=== PATIENT | female | born 1990 | race Caucasian/White ===

== ENCOUNTER → 2019-03-23 | Outpatient (CLI) | payer OTHER ==
[2019-03-23 11:48] LABS: Glucose 3 Hour, Gest 161 mg/dL
== END | disposition home or self-care (01) ==
LOC: LABWHC1 07:39
PROVIDERS: ATTEND Obstetrics & Gynecology
DX: O99.810 Abnormal glucose complicating pregnancy (principal)
CPT/HCPCS: 36415; 82951; 82952

== ENCOUNTER 2019-05-08 15:48 | Outpatient (CLI) | payer OTHER ==
[2019-05-08 16:00] LABS: Glucose,Whole Blood 131 mg/dL (75-99)
[2019-05-08 16:22] LABS: Appearance,Urine Cloudy (Clear); Bacteria,Urine Moderate /hpf; Bilirubin,Urine Negative (Negative); Blood,Urine Negative (Negative); Color,Urine Light Yellow; Glucose,Urine (UA) Negative (Negative); Ketones,Urine 1+ (Negative); Leukocyte Esterase,Urine Large (Negative); Mucus,Urine Rare /hpf; Nitrite,Urine Negative (Negative); PH, Urine 6.5 (5.0-8.0); Protein,Urine Negative (Negative); RBC,Urine 5 /hpf (0-5); Specific Gravity,Urine 1.007 (1.001-1.035); Squamous Epithelial Cell,Urine 9 /hpf (0-4); Urobilinogen,Urine <2.0 mg/dL (<2.0); WBC,Urine 13 /hpf (0-5)
[2019-05-08] MEDS ORDERED: LACTATED RINGERS 500 ML IV SCH (16:45)
[2019-05-08 16:48] VITALS: BP 128/75; PULSE 117; RESP 14; TEMP 98.1
[2019-05-08 17:06] LABS: ALT <6 U/L (9-52); AST 17 U/L (14-36); African American GFR (CKD) >90 (>60 ml/min/1.73 sqM); Albumin 3.5 g/dL (3.5-5.0); Alkaline Phosphatase 84 U/L (38-126); Anion Gap 6 mmol/L; Blood Urea Nitrogen 4 mg/dL (7-17); Calcium 9.2 mg/dL (8.4-10.2); Carbon Dioxide 23 mmol/L (22-30); Chloride 108 mmol/L (98-107); Glucose 99 mg/dL (74-99); Potassium 3.7 mmol/L (3.5-5.1); Sodium 137 mmol/L (137-145); Total Bilirubin 0.3 mg/dL (0.2-1.3); Total Protein 6.6 g/dL (6.3-8.2)
[2019-05-08 17:08] LABS: Basophils % (A) 0 %; Eosinophils # (A) 0.1 k/uL (0-0.7); Eosinophils % (A) 1 %; HCT 29.7 % (34.0-46.0); HGB 10.1 gm/dL (11.4-16.0); Lymphocytes # (A) 1.4 k/uL (1.0-4.8); Lymphocytes % (A) 14 %; MCH 27.3 pg (25.0-35.0); MCHC 33.8 g/dL (31.0-37.0); Mean Platelet Volume 8.5; Monocytes # (A) 0.5 k/uL (0-1.0); Monocytes % (A) 5 %; Neutrophils # (A) 7.9 k/uL (1.3-7.7); Neutrophils % (A) 79 %; Platelet Count 243 k/uL (150-450); Poikilocytosis Slight; RBC 3.68 m/uL (3.80-5.40); RDW 14.4 % (11.5-15.5)
[2019-05-08 17:14] LABS: MCV 80.8 fL (80.0-100.0)
--- NOTE | 2019-05-09 06:37 | P.MSEPDOC ---
Presenting Problems - Arrival Data Date of Arrival on Unit: 05/08/19 Time of Arrival on Unit: 15:48 Mode of Transport: Ambulatory - Complaint OB-Reason for Admission/Chief Complaint: Pain Medical History - Information : 5 Para: 3 Term: 3 : 0 Abortions: Spontaneous or Elective: 1 Number of Living Children: 3 - Gestational Age Gestational Age by AMARJIT (wks/days): 33 Weeks and 5 Days - History Complications: GDM Review of Systems - Review of Systems Constitutional: No problems Breast: No problems ENT: No problems Cardiovascular: No problems Respiratory: No problems Gastrointestinal: No problems Genitourinary: No problems Musculoskeletal: No problems Neurological: No problems Skin: No problems Vital Signs - Temperature Temperature: 98.1 F Temperature Source: Oral - Pulse Right Brachial Pulse Rate: 117 Pulse Assessment Method: Automatic Cuff - Respirations Respiratory Rate: 14 Oxygen Delivery Method: Room Air - Blood Pressure Right Arm Blood Pressure: 128/75 Blood Pressure Mean: 92 Blood Pressure Source: Automatic Cuff Medical Screen Scoring (Pre) - Cervical Exam Dilation: 0 cm = 0 Membranes: Intact - Uterine Contractions Frequency: < 36 weeks = 6 Duration: N/A Intensity: N/A - Maternal Vital Signs Maternal Temperature: N/A Maternal Blood Pressure: N/A Signs of Preeclampsia: N/A Maternal Respirations: N/A - Maternal Trauma Maternal Trauma: N/A - Assessment - Baby A Baseline FHR: 145 Heart Rate - NICHD Category: Category I (Normal) = 0 NST: Reactive Position: N/A Station: N/A - Total Score - Baby A Total Score - Baby A: 6 - Total Score - Baby B Total Score - Baby B: 6 - Total Score - Baby C Total Score - Baby C: 6 - Level of Risk - Baby A Level of Risk - Baby A: Medium (6-9) - Level of Risk - Baby B Level of Risk - Baby B: Medium (6-9) - Level of Risk - Baby C Level of Risk - Baby C: Medium (6-9) Physician Notification (Pre) - Physician Notified Physician Notified Date: 05/08/19 Physician Notified Time: 16:30 Physician/Practitioner Notifed:: Dr. Yañez Spoke With: Dr. Yañez New Order Received: Yes Medical Screen Scoring (Post) - Uterine Contractions Frequency: > 5 minutes apart = 1 Duration: N/A Intensity: N/A - Maternal Vital Signs Maternal Temperature: N/A Signs of Preeclampsia: N/A Maternal Respirations: N/A - Pain Assessment Pain Location and Character: Back Pain Scale Used: Numeric (1 - 10) Pain Intensity: 2 Pain Management Goal: 1 Pain Description: *Acute Pain Radiation Location: na Pain Frequency: Intermittent Pain Duration: 30 Pain Duration Units: Minutes Pain Behavior: Vocalization Pain Aggravating Factors: Activity - Maternal Trauma Maternal Trauma: N/A - Assessment - Baby A Heart Rate: 145 Heart Rate - NICHD Category: Category I (Normal) = 0 NST: Reactive Position: N/A Station: N/A - Total Score Total Score - Baby A: 1 Total Score - Baby B: 1 Total Score - Baby C: 1 - Post Treatment Level of Risk Post Treatment Level of Risk - Baby A: Low (0-5) Physician Notification (Post) - Physician Notified Physician Notified Date: 05/08/19 Physician Notified Time: 18:00 Physician/Practitioner Notified:: Dr. Yañez Spoke With: Dr. Yañez New Order Received: Yes - Notification Comment Comment: d/c home Disposition - Disposition OB Disposition: Discharge to home Discharge Date: 05/08/19 Discharge Time: 18:00 I agree with the RN Medical Screening Exam: Yes Risk & Benefit of care provided described in d/c instruction: Yes Diagnosis: FALSE LABOR BEFORE 37 COMPLETED WEEKS OF GEST, THIRD TRI
== END 2019-05-08 18:20 | disposition home or self-care (01) ==
LOC: FBPOP 15:48
PROVIDERS: ATTEND Obstetrics & Gynecology
DX: O47.03 False labor before 37 completed weeks of gestation, third trimester (principal); Z3A.33 33 weeks gestation of pregnancy
CPT/HCPCS: 96360; 82731; 80053; 85025; 81001; 87086; G0463; 99214

== ENCOUNTER 2019-06-17 05:28 | Inpatient (IN) | payer OTHER ==
[2019-06-17 05:49] LABS: Glucose,Whole Blood 100 mg/dL (75-99)
[2019-06-17] MEDS ORDERED: METHYLERGONOVINE 0.2 MG/ML 1 ML AMP IM PRN (05:49)
[2019-06-17] MEDS ORDERED: TERBUTALINE 1 MG/ML VIAL SQ PRN (05:49)
[2019-06-17] MEDS ORDERED: OXYTOCIN 10 UNIT/ML 1 ML VIAL IM PRN (05:49)
[2019-06-17] MEDS ORDERED: LIDOCAINE 0.5% (PF) 5 MG/ML (50 ML SDV) SQ PRN (05:49)
[2019-06-17] MEDS ORDERED: CARBOPROST TROMETHAMINE 250 MCG/ML 1 ML AMP IM PRN (05:49)
[2019-06-17 05:57] LABS: Basophils % (A) 1 %; Eosinophils # (A) 0.1 k/uL (0-0.7); Eosinophils % (A) 1 %; HCT 30.4 % (34.0-46.0); Hypochromasia Slight; Lymphocytes % (A) 22 %; MCH 25.8 pg (25.0-35.0); MCV 78.1 fL (80.0-100.0); Mean Platelet Volume 8.2; Monocytes # (A) 0.5 k/uL (0-1.0); Monocytes % (A) 5 %; Neutrophils % (A) 67 %; Platelet Count 307 k/uL (150-450); Poikilocytosis Slight; RBC 3.88 m/uL (3.80-5.40); RDW 14.4 % (11.5-15.5); WBC 8.9 k/uL (3.8-10.6)
[2019-06-17 05:59] VITALS: BMI 31.8
[2019-06-17] MEDS ORDERED: OXYTOCIN 30 UNITS/500 ML NS 30 UNIT in SALINE 1 500ML.BAG IV SCH (06:00)
[2019-06-17] MEDS: LACTATED RINGERS 1,000 ML IV SCH ×2 (06:05→11:31)
[2019-06-17 08:01] LABS: Glucose,Whole Blood 95 mg/dL (75-99)
[2019-06-17 10:21] LABS: Glucose,Whole Blood 96 mg/dL (75-99)
[2019-06-17] MEDS ORDERED: BUTORPHANOL 1 MG/ML 1 ML VIAL IV PRN (10:39)
[2019-06-17 11:59] LABS: Glucose,Whole Blood 96 mg/dL (75-99)
--- NOTE | 2019-06-17 12:51 | P.HPOB ---
History of Present Illness H&P Date: 06/17/19 Chief Complaint: induction of labor. GDMA2 29 year old at 39 weeks 3 days presents for induction of labor. HEr cervix is 2/70/-2 and she is natalia irregularly. heart tones 130 with moderate variability and reactive. She is gestational diabetic on insulin and BS this morning was 100. Review of Systems All systems: negative Constitutional: Denies chills, Denies fever Eyes: denies blurred vision, denies pain Ears, nose, mouth and throat: Denies headache, Denies sore throat Cardiovascular: Denies chest pain, Denies shortness of breath Respiratory: Denies cough Gastrointestinal: Denies abdominal pain, Denies diarrhea, Denies nausea, Denies vomiting Genitourinary: Denies dysuria, Denies hematuria Musculoskeletal: Denies myalgias Integumentary: Denies pruritus, Denies rash Neurological: Denies numbness, Denies weakness Psychiatric: Denies anxiety, Denies depression Endocrine: Denies fatigue, Denies weight change Past Medical History Past Medical History: Thyroid Disorder Additional Past Medical History / Comment(s): Obstetric history: And has had 3 previous vaginal deliveries and 1 spontaneous . This is her fifth . She's had care with me since 9 weeks gestation. Blood type is O+, antibodies negative, rubella immune, RPR nonreactive, hepatitis B-, HIV nonreactive. She failed early 1 hour test and was put on a insulin for gestational diabetes. NSTs had been reactive and growth ultrasounds normal. GBS negative. History of Any Multi-Drug Resistant Organisms: None Reported Past Surgical History: Appendectomy Additional Past Surgical History / Comment(s): 11-24-14 lap appy Past Anesthesia/Blood Transfusion Reactions: No Reported Reaction Past Psychological History: Anxiety, Depression Additional Psychological History / Comment(s): starting medication post Smoking Status: Never smoker Past Alcohol Use History: None Reported Past Drug Use History: None Reported - Past Family History Mother Family Medical History: Hypertension, Thyroid Disorder Sister(s) Family Medical History: Syncope Father Family Medical History: COPD Additional Family Medical History / Comment(s): takes B-12 injections, has a problem absorbing B-12 Brother(s) Additional Family Medical History / Comment(s): takes B-12 injections, has a problem absorbing B-12 Medications and Allergies Home Medications Medication Instructions Recorded Confirmed Type INSULIN LISPRO (humaLOG) [humaLOG] 0 units SQ DIRECTED 05/08/19 06/17/19 History Insulin NPH [humuLIN N] 14 units SQ HS 06/17/19 06/17/19 History Levothyroxine Sodium [Synthroid] 25 mcg PO DAILY 06/17/19 06/17/19 History Allergies Allergy/AdvReac Type Severity Reaction Status Date / Time onion AdvReac Nausea & Verified 06/17/19 05:45 Vomiting & Diarrhea Exam Osteopathic Statement: *. No significant issues noted on an osteopathic structural exam other than those noted in the History and Physical/Consult. Vital Signs Temp Pulse Resp BP Pulse Ox 06/17/19 05:45 97.6 F 104 H 16 140/75 98 Intake and Output 06/16/19 06/17/19 06/17/19 22:59 06:59 14:59 Other: # Voids 1 Weight 78.925 kg HEart: RRR Lungs: CTAB Abdomen: soft, nontender Extremeties: neg dali's Results Result Diagrams: 06/17/19 05:45 Abnormal Lab Results - Last 24 Hours (Table) 06/17/19 06/17/19 Range/Units 05:45 05:48 Hgb 10.0 L (11.4-16.0) gm/dL Hct 30.4 L (34.0-46.0) % MCV 78.1 L (80.0-100.0) fL POC Glucose (mg/dL) 100 H (75-99) mg/dL Assessment and Plan (1) Gestational diabetes mellitus, class A2 Current Visit: Yes Status: Acute Code(s): O24.419 - GESTATIONAL DIABETES MELLITUS IN , UNSP CONTROL SNOMED Code(s): 08107057 (2) Normal labor Current Visit: No Status: Resolved Code(s): O80 - ENCOUNTER FOR FULL-TERM UNCOMPLICATED DELIVERY SNOMED Code(s): 40002589 Plan: 1. induction of labor with amniotomy and pitocin 2. monitor sugars through labor 3. anticipate normal vaginal delivery
[2019-06-17] MEDS ORDERED: ROPIVACAINE 100 MG, fentaNYL (PF) 200 MCG in SODIUM CHLORIDE 0.9% 76 ML EPIDURAL ONE (13:01)
[2019-06-17 13:22] LABS: Glucose,Whole Blood 100 mg/dL (75-99)
[2019-06-17] MEDS ORDERED: WITCH HAZEL 1 EACH MED..PAD TOPICAL PRN (14:04)
[2019-06-17] MEDS ORDERED: HYDROCORTISONE 2.5% RECTAL CREAM 30 GM TUBE RECTAL PRN (14:04)
[2019-06-17] MEDS ORDERED: diphenhydrAMINE 50 MG CAP PO PRN (14:04)
[2019-06-17] MEDS ORDERED: diphenhydrAMINE 25 MG CAP PO PRN (14:04)
[2019-06-17] MEDS ORDERED: diphenhydrAMINE 50 MG/ML 1 ML VIAL IVP PRN ×2 (14:04)
[2019-06-17] MEDS ORDERED: SIMETHICONE 80 MG CHEWABLE PO PRN (14:04)
[2019-06-17] MEDS ORDERED: LANOLIN CREAM 5 GM TUBE TOPICAL PRN (14:04)
[2019-06-17] MEDS ORDERED: ZOLPIDEM 5 MG TAB PO PRN (14:04)
[2019-06-17] MEDS ORDERED: BENZOCAINE/MENTHOL SPRAY 1 GM/SPRAY AEROSOL TOPICAL PRN (14:04)
[2019-06-17] MEDS ORDERED: OXYTOCIN 20 UNITS/1000 ML NS 1,000 ML IV SCH (14:15)
[2019-06-17] MEDS: ACETAMINOPHEN TAB 325 MG TAB PO PRN ×2 (14:33→18:26)
[2019-06-17 16:05] LABS: Hemoglobin A1C 6.3 % (4.0-6.0)
[2019-06-17] MEDS: IBUPROFEN 600 MG TAB PO PRN ×2 (16:18→22:26)
--- NOTE | 2019-06-17 16:27 | P.PROBDLV ---
Vaginal Delivery Note - . Vaginal Delivery Note: 29 year old at 39 weeks 3 days presents for induction of labor. Her cervix is 2/70/-2 and she is natalia irregularly. heart tones 130 with moderate variability and reactive. She is gestational diabetic on insulin and BS this morning was 100. Pitocin was started. Amniotomy was performed at 7:51 a.m. and clear fluid noted. When she was about 3-1/2 cm dilated she did get an epidural and was comfortable. Her cervix was completely dilated at 1325. She pushed, delivered a viable male infant over intact perineum under epidural anesthesia at 1332. Head delivered OA, nuchal cord 1 easily reduced, anterior shoulder which was the left shoulder delivered gentle downward guidance followed by the posterior shoulder and rest of body. Nose and mouth bulb suctioned, cord clamped and cut, placed on mother's abdomen. Apgars 7, 9, weight 9 lbs. 6 oz. Placenta delivered spontaneously, intact with three-vessel cord at 1338. Vagina, cervix, and perineum were inspected. No lacerations noted. Estimated blood loss 200 mL. Mother and baby in stable condition.
[2019-06-17] MEDS: SENNOSIDES-DOCUSATE SODIUM 1 EACH TAB PO SCH (20:00)
[2019-06-18] MEDS: ACETAMINOPHEN TAB 325 MG TAB PO PRN ×3 (00:51→23:11)
[2019-06-18] MEDS: IBUPROFEN 600 MG TAB PO PRN ×3 (05:33→19:51)
[2019-06-18 07:17] LABS: Basophils % (A) 0 %; Eosinophils # (A) 0.1 k/uL (0-0.7); Eosinophils % (A) 1 %; HCT 28.8 % (34.0-46.0); HGB 9.1 gm/dL (11.4-16.0); Hypochromasia Moderate; Lymphocytes # (A) 1.8 k/uL (1.0-4.8); Lymphocytes % (A) 17 %; MCH 25.2 pg (25.0-35.0); MCHC 31.6 g/dL (31.0-37.0); MCV 79.6 fL (80.0-100.0); Mean Platelet Volume 8.1; Monocytes # (A) 0.6 k/uL (0-1.0); Monocytes % (A) 5 %; Neutrophils # (A) 7.7 k/uL (1.3-7.7); Neutrophils % (A) 74 %; Platelet Count 267 k/uL (150-450); Poikilocytosis Slight; RBC 3.61 m/uL (3.80-5.40); RDW 14.3 % (11.5-15.5); WBC 10.4 k/uL (3.8-10.6)
--- NOTE | 2019-06-18 08:06 | P.DS ---
Providers Date of admission: 06/17/19 05:28 Expected date of discharge: 06/18/19 Attending physician: Sammie Heath Primary care physician: Stated None - Discharge Diagnosis(es) (1) Gestational diabetes mellitus, class A2 Current Visit: Yes Status: Acute (2) Normal vaginal delivery Current Visit: No Status: Acute Hospital Course: Patient presented for induction of labor. She underwent a normal vaginal delivery. Her course was uncomplicated. She'll be discharged home p ostpartum day #1 in stable condition to follow-up with me in 6 weeks. Plan - Discharge Summary New Discharge Prescriptions: New Ibuprofen [Motrin] 600 mg PO Q6HR PRN #30 tab PRN Reason: Mild Pain Or Fever >= 100.5 Continue Levothyroxine Sodium [Synthroid] 25 mcg PO DAILY Discontinued INSULIN LISPRO (humaLOG) [humaLOG] 0 units SQ DIRECTED Insulin NPH [humuLIN N] 14 units SQ HS Discharge Medication List Levothyroxine Sodium [Synthroid] 25 mcg PO DAILY 06/17/19 [History] Ibuprofen [Motrin] 600 mg PO Q6HR PRN #30 tab 06/18/19 [Rx] Follow up Appointment(s)/Referral(s): Sammie Heath DO [Doctor of Osteopathic Medicine] - 6 Weeks Discharge Disposition: HOME SELF-CARE
[2019-06-18] MEDS: SENNOSIDES-DOCUSATE SODIUM 1 EACH TAB PO SCH ×2 (12:36→14:00)
[2019-06-18] MEDS ORDERED: INFLUENZA VACCINE (6 MOS+) 60 MCG/0.5 ML SYRINGE IM ONE (16:11)
[2019-06-19] MEDS: IBUPROFEN 600 MG TAB PO PRN ×2 (07:42→13:06)
[2019-06-19 08:40] VITALS: RESP 15
[2019-06-19] MEDS: SENNOSIDES-DOCUSATE SODIUM 1 EACH TAB PO SCH (13:07)
[2019-06-19 17:06] VITALS: BP 134/73; PULSE 74; TEMP 98.7
== END 2019-06-19 18:20 | disposition home or self-care (01) | DRG 807 ==
LOC: 4FBP 05:28
PROVIDERS: ADMIT Obstetrics & Gynecology; ATTEND Obstetrics & Gynecology
PROC: 00HU33Z Insertion of Infusion Device into Spinal Canal, Percutaneous Approach (ICD-10-PCS; principal; 2019-06-17)
PROC: 3E033VJ Introduction of Other Hormone into Peripheral Vein, Percutaneous Approach (ICD-10-PCS; principal; 2019-06-17)
PROC: 10E0XZZ Delivery of Products of Conception, External Approach (ICD-10-PCS; principal; 2019-06-17)
PROC: 10907ZC Drainage of Amniotic Fluid, Therapeutic from Products of Conception, Via Natural or Artificial Opening (ICD-10-PCS; principal; 2019-06-17)
PROC: 3E0R3NZ Introduction of Analgesics, Hypnotics, Sedatives into Spinal Canal, Percutaneous Approach (ICD-10-PCS; principal; 2019-06-17)
DX: O24.424 Gestational diabetes mellitus in childbirth, insulin controlled (principal); Z37.0 Single live birth; O99.284 Endocrine, nutritional and metabolic diseases complicating childbirth; E07.9 Disorder of thyroid, unspecified; Z79.890 Hormone replacement therapy; Z3A.39 39 weeks gestation of pregnancy; Z91.018 Allergy to other foods; O69.81X0 Labor and delivery complicated by cord around neck, without compression, not applicable or unspecified; Z82.49 Family history of ischemic heart disease and other diseases of the circulatory system; Z82.5 Family history of asthma and other chronic lower respiratory diseases
CPT/HCPCS: 83036; 85025; 86850; 86900; 86901; 90686

== ENCOUNTER → 2022-01-20 | Outpatient (CLI) | payer OTHER ==
--- NOTE | 2022-01-20 11:51 | CA ---
Exercise Stress Test Report Name: Yee Rick Exam Date: 01/20/2022 09:55 Exam Location: [facility] Ht (in): 65 Wt (lb): 150 BSA: 1.75 Ordering Phys: Lanataff, Physician Referring Phys: Bettye Ames [facility] Technologist: Bobo Mcdermott Age: 32 Gender: F : 1990 Procedure CPT: Indications: R07.9 CHEST PAIN ICD-10 Codes: Patient History: CP, DIFFICULTY IN BREATHING, PALPITATIONS, DIABETES, ELEVATED CHOLESTEROL LEVELS, FAMILY HX. Medications: MARY, LATUDA, LEVOTHYROXINE, MAGNESIUM, METFORMIN, NEOMYCIN, POLYMYXIN, PRAVASTATIN, TRI-SPRINTEC, VIT D3 Meds past 24 hrs: Pretest Chest Pain: STRESS TEST Shilo Protocol Exercise Duration (min:sec): 10:[address] Depressions (mm): Angina Score: See Score: Resting HR (bpm): 95 Peak HR (bpm): 172 Resting BP (mmHg): 127 / 76 Peak BP (mmHg): 218 / 82 MPHR: 189 Target HR: 161 % MPHR: 91 METS: 12.1 Total Dose: Peak Dose: Atropine: Double Product: 24701 BP Response: Stress Termination: Stress Symptoms: Stress Summary: ECG ANALYSIS Resting ECG: Stress ECG: CONCLUSIONS Patient average exercise tolerance Normal EKG and response to exercise Dr. Toro Kim MD (Electronically Signed) Final Date: 20 Jan 2022 11:50
== END | disposition home or self-care (01) ==
LOC: RADNMMAIN 09:11
DX: R07.9 Chest pain, unspecified (principal)
CPT/HCPCS: 93017

== ENCOUNTER 2023-08-04 20:29 | Inpatient (IN) | payer MEDICAID, OTHER ==
--- NOTE | 2023-08-04 22:39 | ED ---
Psych HPI - General Source: patient, RN notes reviewed Mode of arrival: ambulatory Limitations: no limitations - History of Present Illness MD Complaint: suicidal ideation <Ketty Ortiz - Last Filed: 08/04/23 22:39> - General Source: patient, RN notes reviewed, old records reviewed <Shan Lopez - Last Filed: 08/05/23 00:43> - General Chief Complaint: Psychiatric Symptoms Stated Complaint: suicidal ideation Time Seen by Provider: 08/04/23 20:30 - History of Present Illness Initial Comments: This is a 33-year-old female who presents to the emergency department for increasing depression and suicidal ideations. Reports plans to overdose on medication. She tried taking a xanax before coming here which was not helpful. Denies any homicidal ideations or auditory/visual hallucinations. (Ketty Ortiz) Patient is a 33-year-old female presents emergency department for psychiatric evaluation. She was boarding in the waiting room for a long time due to large ER volumes. I evaluated the patient when she was placed in room 29. Patient is here for suicidal ideations. She does have a plan of wanting to overdose. Denies any attempts. Denies any hallucinations. Denies any homicidal ideations. Currently endorses a mild headache but she took Tylenol for it. His no other acute complaints at this time. States her symptoms have been ongoing for multiple months but seems to be worse lately which is why she presents for further evaluation. Patient originally evaluated as a quick note. (Shan Lopez) - Related Data Home Medications Medication Instructions Recorded Confirmed Levothyroxine Sodium [Synthroid] 25 mcg PO DAILY 06/17/19 06/17/19 Previous Rx's Medication Instructions Recorded Ibuprofen [Motrin] 600 mg PO Q6HR PRN #30 tab 06/18/19 Ibuprofen [Motrin] 600 mg PO Q6HR PRN #40 tab 06/19/19 Allergies Allergy/AdvReac Type Severity Reaction Status Date / Time onion AdvReac Nausea & Verified 06/17/19 05:45 Vomiting & Diarrhea Cnoujyt-BII-IaH Reductase AdvReac Rash/Hives Verified 08/04/23 20:45 Inhibitor Review of Systems ROS Other: All systems not noted in ROS Statement are negative. <Ketty Ortiz - Last Filed: 08/04/23 22:39> ROS Other: All systems not noted in ROS Statement are negative. <Shan Lopez - Last Filed: 08/05/23 00:43> ROS Statement: Those systems with pertinent positive or pertinent negative responses have been documented in the HPI. Review of Systems: CONST: Denies fever EYES: Denies blurry vision ENT: Denies nasal congestion C/V: Denies Chest pain RESP: Denies shortness of breath GI: Denies abdominal pain : Denies dysuria SKIN: Denies rash. MSK: Denies joint pain. NEURO: Denies headache PSYCH: Denies homicidal ideations/plans/attempts. Denies visual or auditory hallucinations. She endorses suicidal ideations and plan of overdose. Denies attempts. (Shan Lopez) Past Medical History Past Medical History: Thyroid Disorder Additional Past Medical History / Comment(s): Obstetric history: And has had 3 previous vaginal deliveries and 1 spontaneous . This is her fifth . She's had care with me since 9 weeks gestation. Blood type is O+, antibodies negative, rubella immune, RPR nonreactive, hepatitis B-, HIV nonreactive. She failed early 1 hour test and was put on a insulin for gestational diabetes. NSTs had been reactive and growth ultrasounds normal. GBS negative. History of Any Multi-Drug Resistant Organisms: None Reported Past Surgical History: Appendectomy Additional Past Surgical History / Comment(s): 11-24-14 lap appy Past Anesthesia/Blood Transfusion Reactions: No Reported Reaction Past Psychological History: Anxiety, Depression, PTSD Smoking Status: Never smoker Past Alcohol Use History: Occasional Past Drug Use History: None Reported - Past Family History Mother Family Medical History: Hypertension, Thyroid Disorder Sister(s) Family Medical History: Syncope Father Family Medical History: COPD Additional Family Medical History / Comment(s): takes B-12 injections, has a problem absorbing B-12 Brother(s) Additional Family Medical History / Comment(s): takes B-12 injections, has a problem absorbing B-12 <Ketty Ortiz - Last Filed: 08/04/23 22:39> General Exam Limitations: no limitations <Ketty Ortiz - Last Filed: 08/04/23 22:39> <Shan Lopez - Last Filed: 08/05/23 00:43> - General Exam Comments Initial Comments: Visual Physical Exam Vital signs reviewed General: Well-appearing, nontoxic, no acute distress. Head: Normocephalic, atraumatic Eyes: PERRLA, EOMI ENT: Airway patent Chest: Nonlabored breathing Skin: No visual rash, normal skin tone Neuro: Alert and oriented 3 Musculoskeletal: No gross abnormalities (Ketty Ortiz) General: Appears in no acute distress. HEAD: Normal with no signs of head trauma. EYES: PERRLA, EOMI, conjunctiva normal, no discharge. ENT: Hearing grossly intact, normal oropharynx. RESPIRATORY: Clear breath sounds bilaterally. No wheezes, rales, or rhonchi. C/V: Regular rate and rhythm. S1 and S2 auscultated, peripheral pulses 2+ and intact throughout ABD: Abd is soft, nontender, nondistended EXT: Normal range of motion, no obvious deformity SKIN: No rashes or lesions observed on exposed skin. Tattoos on both arms. NEURO: Alert and oriented 4. (Shan Lopez) Course Vital Signs 08/04/23 20:38 Temperature 98.0 F Pulse Rate 107 H Respiratory 22 Rate Blood Pressure 137/98 O2 Sat by Pulse 98 Oximetry Medical Decision Making <Ketty Ortiz - Last Filed: 08/04/23 22:39> <Shan Lopez - Last Filed: 08/05/23 00:43> - Medical Decision Making I performed the QuickNote portion of this chart. Signed Ketty Ortiz PA-C. (Ketty Ortiz) Was pt. sent in by a medical professional or institution (RITU Babcock, TELEPHONE OPERATORS SUPERVISOR, urgent care, hospital, or long-term...) When possible be specific @ -No Did you speak to anyone other than the patient for history (EMS, parent, family, police, friend...)? What history was obtained from this source @ -No Did you review nursing and triage notes (agree or disagree)? Why? @ -I reviewed and agree with nursing and triage notes Were old charts reviewed (outside hosp., previous admission, EMS record, old EKG, old radiological studies, urgent care reports/EKG's, long-term records)? Report findings @ -Old charts reviewed Differential Diagnosis (chest pain, altered mental status, abdominal pain women, abdominal pain men, vaginal bleeding, weakness, fever, dyspnea, syncope, headache, dizziness, GI bleed, back pain, seizure, CVA, palpatations, mental health, musculoskeletal)? @ -Differential Mental Health Depression, anxiety, bipolar, psychosis, schizophrenia, borderline personality, situational depression, adjustment disorder, behavioral disorder, brain tumor, malingering, substance abuse, encephalopathy, medication reaction, dementia, hypothyroidism, degenerative neurologic disorder, lupus.... This is not meant to be all-inclusive list EKG interpreted by me (3pts min.). @ -None done X-rays interpreted by me (1pt min.). @ -None done CT interpreted by me (1pt min.). @ -None done U/S interpreted by me (1pt. min.). @ -None done What testing was considered but not performed or refused? (CT, X-rays, U/S, labs)? Why? @ -None What meds were considered but not given or refused? Why? @ -None Did you discuss the management of the patient with other professionals (professionals i.e. , PA, TELEPHONE OPERATORS SUPERVISOR, lab, RT, psych nurse, social sciences instructor, machine etcher, teacher, nuclear security officer, manager of case)? Give summary @ -Spoke with EPS who will admit the patient to inpatient psychiatric care. Was smoking cessation discussed for >3mins.? @ -No Was critical care preformed (if so, how long)? @ -No Were there social determinants of health that impacted care today? How? (Homelessness, low income, unemployed, alcoholism, drug addiction, transportation, low edu. Level, literacy, decrease access to med. care, halfway, rehab)? @ -No Was there de-escalation of care discussed even if they declined (Discuss DNR or withdrawal of care, Hospice)? DNR status @ -No What co-morbidities impacted this encounter? (DM, HTN, Smoking, COPD, CAD, Ca ncer, CVA, ARF, Chemo, Hep., AIDS, mental health diagnosis, sleep apnea, morbid obesity)? @ -None Was patient admitted / discharged? Hospital course, mention meds given and route, prescriptions, significant lab abnormalities, going to OR and other pertinent info. @ -Based on the patient's presentation and physical exam, I'm concerned for wh at sounds like suicidal ideations and worsening depression. Patient was placed in green scrubs. I evaluated her when she was placed in a room. Sitter and suicide precautions ordered. Vital signs within acceptable limits. BAT is 0. UDS is pending. Patient is medically cleared for evaluation by psychiatry. EPS notified to evaluate the patient. They evaluated the patient, and updated me the patient will be admitted to inpatient psychiatric care. Patient admitted in stable condition. Undiagnosed new problem with uncertain prognosis? @ -No Drug Therapy requiring intensive monitoring for toxicity (Heparin, Nitro, Insulin, Cardizem)? @ -No Were any procedures done? @ -No Diagnosis/symptom? @ -Suicidal ideations, encounter for psychiatric evaluation Acute, or Chronic, or Acute on Chronic? @ -Acute Uncomplicated (without systemic symptoms) or Complicated (systemic symptoms)? @ -Uncomplicated Side effects of treatment? @ -No Exacerbation, Progression, or Severe Exacerbation? @ -No Poses a threat to life or bodily function? How? (Chest pain, [place], [place], pneumonia, PE, COPD, DKA, ARF, appy, cholecystitis, CVA, Diverticulitis, Homicidal, Suicidal, threat to staff... and all critical care pts) @ -Yes (Shan Lopez) Disposition <Ketty Ortiz - Last Filed: 08/04/23 22:39> Time of Disposition: 00:29 <Shan Lopez - Last Filed: 08/05/23 00:43> Clinical Impression: Encounter for psychiatric assessment, Suicidal ideation Disposition: TRANSFER TO PSYCH HOSP/UNIT Condition: Stable Referrals: Hima Barber MD [Primary Care Provider] - 1-2 days
[2023-08-05 01:12] LABS: Amphetamine Screen,Urine Not Detected (NotDetected); Barbiturate Screen,Urine Not Detected (NotDetected); Benzodiazepines Screen,Urine Not Detected (NotDetected); Cocaine Screen,Urine Not Detected (NotDetected); Methadone Screen, Urine Not Detected (NotDetected); Opiate Screen,Urine Not Detected (NotDetected); Oxycodone Screen, Urine Not Detected (NotDetected); Phencyclidine Screen,Urine Not Detected (NotDetected); Tricyclic Antidepressant,Urine Not Detected (NotDetected); Urn Cannabinoid Scrn Not Detected (NotDetected)
[2023-08-05] MEDS ORDERED: HALOPERIDOL LACTATE 5 MG/ML 1 ML VIAL IM PRN (02:14)
[2023-08-05] MEDS ORDERED: MAGNESIUM HYDROXIDE 2,400 MG/30 ML CUP PO PRN (02:14)
[2023-08-05] MEDS ORDERED: LORazepam 1 MG TAB PO PRN (02:14)
[2023-08-05] MEDS ORDERED: ACETAMINOPHEN TAB 325 MG TAB PO PRN (02:14)
[2023-08-05] MEDS ORDERED: haloperidoL 5 MG TAB PO PRN (02:14)
[2023-08-05] MEDS ORDERED: IBUPROFEN 600 MG TAB PO PRN (02:14)
[2023-08-05] MEDS ORDERED: LORazepam 2 MG/ML INJ IM PRN (02:14)
[2023-08-05] MEDS ORDERED: MAG HYDROX/AL HYDROX/SIMETH 30 ML CUP PO PRN (02:14)
[2023-08-05 03:23] LABS: Appearance,Urine Clear (Clear); Bilirubin,Urine Negative (Negative); Blood,Urine Negative (Negative); Color,Urine Light Yellow; Glucose,Urine (UA) Negative (Negative); Ketones,Urine Negative (Negative); Leukocyte Esterase,Urine Moderate (Negative); Nitrite,Urine Negative (Negative); Protein,Urine Negative (Negative); RBC,Urine 2 /hpf (0-5); Urobilinogen,Urine 0.2 mg/dL (<2.0); WBC,Urine 12 /hpf (0-5)
[2023-08-05 03:24] LABS: Bacteria,Urine Few /hpf; Mucus,Urine Moderate /hpf; Squamous Epithelial Cell,Urine 3 /hpf (0-4)
[2023-08-05] MEDS: LEVOTHYROXINE 100 MCG TAB PO SCH (06:50)
[2023-08-05] MEDS ORDERED: IBUPROFEN 800 MG TAB PO PRN (11:37)
[2023-08-05] MEDS ORDERED: POTASSIUM CHLORIDE ER 10 MEQ TAB.ER.PRT PO SCH (11:45)
[2023-08-05] MEDS ORDERED: ESTARYLLA PO SCH (11:45)
--- NOTE | 2023-08-05 11:56 | P.HP ---
Psychiatric H&P - . H&P Date: 08/05/23 History & Physical: Allergies Allergy/AdvReac Type Severity Reaction Status Date / Time onion AdvReac Nausea & Verified 08/05/23 02:21 Vomiting & Diarrhea [id number] Reductase AdvReac Rash/Hives Verified 08/05/23 02:21 Inhibitor Vital Signs Temp 97.9 F 08/05/23 02:40 Pulse 81 08/05/23 02:40 Resp 14 08/05/23 02:40 BP 129/87 08/05/23 02:40 Pulse Ox 99 08/05/23 02:40 FiO2 Intake & Output 08/04/23 08/05/23 08/05/23 18:59 06:59 18:59 Weight 59.024 kg Laboratory Last Values Urine Color Light Yellow 08/05/23 00:21 Urine Appearance Clear (Clear) 08/05/23 00:21 Urine pH 6.0 (5.0-8.0) 08/05/23 00:21 Ur Specific [place] 1.010 (1.001-1.035) 08/05/23 00:21 Urine Protein Negative (Negative) 08/05/23 00:21 Urine Glucose (UA) Negative (Negative) 08/05/23 00:21 Urine Ketones Negative (Negative) 08/05/23 00:21 Urine Blood Negative (Negative) 08/05/23 00:21 Urine Nitrite Negative (Negative) 08/05/23 00:21 Urine Bilirubin Negative (Negative) 08/05/23 00:21 Urine Urobilinogen 0.2 mg/dL (<2.0) 08/05/23 00:21 Ur Leukocyte Esterase Moderate (Negative) H 08/05/23 00:21 Urine RBC 2 /hpf (0-5) 08/05/23 00:21 Urine WBC 12 /hpf (0-5) H 08/05/23 00:21 Ur Squamous Epith Cells 3 /hpf (0-4) 08/05/23 00:21 Urine Bacteria Few /hpf (None) H 08/05/23 00:21 Urine Mucus Moderate /hpf (None) H 08/05/23 00:21 Urine HCG, Qual Not Detected (Not Detectd) 08/05/23 00:21 Urine Opiates Screen Not Detected (NotDetected) 08/05/23 00:21 Ur Oxycodone Screen Not Detected (NotDetected) 08/05/23 00:21 Urine Methadone Screen Not Detected (NotDetected) 08/05/23 00:21 Ur Propoxyphene Screen Not Detected (NotDetected) 08/05/23 00:21 Ur Barbiturates Screen Not Detected (NotDetected) 08/05/23 00:21 U Tricyclic Antidepress Not Detected (NotDetected) 08/05/23 00:21 Ur Phencyclidine Scrn Not Detected (NotDetected) 08/05/23 00:21 Ur Amphetamines Screen Not Detected (NotDetected) 08/05/23 00:21 U Methamphetamines Scrn Not Detected (NotDetected) 08/05/23 00:21 U Benzodiazepines Scrn Not Detected (NotDetected) 08/05/23 00:21 Urine Cocaine Screen Not Detected (NotDetected) 08/05/23 00:21 U Marijuana (THC) Screen Not Detected (NotDetected) 08/05/23 00:21 SARS-CoV-2 (PCR) Not Detected (Not Detectd) 08/05/23 00:10 08/05/23 08:59 IDENTIFYING DATA: Patient is a 33 y/o female lives in a house with ex and 4 children, 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 HPI: Patient presented to the hospital [to ED on 08/04, as per EPS note " brought in by ex whom she lives with due to SI w plan to OD on medications. Patient reports not wanting to live anymore, overwhelmed, feels like a failure,numb/existing in life, low motivation,loss of interest, tearful, racing thoughts, tangential, thought blocking, depression, anxiety for last 2 yrs with hx of significant loses over last 7 yrs. Patient reports being hypervigilant, fatigued, wanting to sleep, not interacting with children, guilt and shame." Patient was seen today in the office. States that she was having bad thoughts, and a 'close call' with wanting to OD, to go to sleep forever. patient was fairly constricted, vague and evasive about information. States she has a few medications at home that would help her achieve this. Patient had her ex bring her to the ED. She states she had a "brave moment" and decided to not do it because of her kids. States stressors include several things, and that she cannot pin point an exact reason. States her boss said "something stupid and degrading" directed toward her, and that seemed to be the final straw. Other stressors include having an autistic child, that has bad behaviors that are hard to control. Claims financial issues, however she still stresses out about it. Denies relationship issues. States she's prescribed Xanax, for anxiety, however it's not really helping. Claims her sleep is not very well, and only sleeps a broken 3-4 hours per night. Her appetite is not good. Patient denies any currnet suicidal or homicidal ideations intent or plan. At this time patient denies any auditory or visual hallucinations. Patient denies any flight of ideas racing thoughts and increased in goal directed behavior. Patient denies drugs/nicotine. Drinks alcohol PAST PSYCHIATRIC HISTORY: Patient denies past admissions.. Patient is prescribed xanax, lamictal and vraylar, by PCP. [Patient denies any psychiatric outpatient follow-up. Patient denies any history of suicide attempts in the past. 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 High school graduate, denies legal issues. MENTAL STATUS EXAM: General Appearance: Patient appears to be younger than stated age is alert, wearing a hospital gown, glasses, short hait, thin build. several tattoos. directable, and attempts to cooperate. Patient appears to have fair hygiene and grooming. Behavior: Patient is seated without any agitated behavior. poor eye contact. evasive, gaurded. Speech: Patient's speech is fluent and nonpressured, quiet tone. Mood/Affect: Patient reports their mood is stressed/depressed and anxious, affect is congruent and constricted. minimizing Suicidality/Homicidality: Patient denies having any homicidal ideation intent or plan. Denies any suicidal ideations intent or plan Perceptions: Patient denies any visual hallucinations and denies any auditory hallucinations Though content/process: There is no evidence of any delusional thought content and thought process is linear and goal-directed. concrete, poverty of content. Memory and concentration: AOX3, grossly intact for the purposes of this session. Can spell "WORLD" backwards Judgment and insight: poor STRENGTHS/WEAKNESSES: strength is that patient is resilient. 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 Patient has signed adult voluntary form and medication consent and is placed in patient's chart. -Medications : Will start patient on Lamictal 25 bid for mood stabilization/depression Zoloft 50mg po qhs for mood/anxiety trazadone 25mg po qhs for mood/insomnia -Ativan PRN for agitation/aggression -Patient was informed of the risks, benefits and side effects of the medication and patient verbally consented to taking the medications. Patient signed med consent form and was placed in chart. -Internal Medicine consult to perform medical evaluation and physical. -NRT - nonsmoker - on board for discharge planning. Encourage patient to participate in groups to work on coping skills. 08/05/23 11:28 08/05/23 11:53
[2023-08-05] MEDS: lamoTRIgine 25 MG TAB PO SCH ×2 (12:10→20:41)
[2023-08-05] MEDS: DOCUSATE 100 MG CAP PO SCH (12:10)
[2023-08-05] MEDS: CHOLECALCIFEROL 125 MCG (5000 IU) TABLET PO SCH (12:10)
[2023-08-05] MEDS: SPRINTEC PO SCH (12:28)
[2023-08-05] MEDS ORDERED: SUMAtriptan succinate 25 MG TAB PO PRN (12:44)
[2023-08-05] MEDS ORDERED: ALBUTEROL INHALER 60 PUFF/8 GM INHALER (MHU) INHALATION PRN (12:47)
[2023-08-05] MEDS: LORATADINE 10 MG TAB PO SCH (13:21)
[2023-08-05] MEDS: MAGNESIUM OXIDE 400 MG TAB PO SCH (20:41)
[2023-08-05] MEDS: SERTRALINE 50 MG TAB PO SCH (20:41)
--- NOTE | 2023-08-05 21:25 | CONS ---
CONSULTATION HISTORY OF PRESENT ILLNESS: This is a 33-year-old woman with a past medical history of multiple medical problems, who was admitted with major depression and psychotic features. The patient also had some headache. The patient had apparently taken some Imitrex previously without much relief. There is no history of any fever, rigor, or chills at this time. PAST MEDICAL HISTORY: Reviewed includes thyroid disorder, appendectomy, anxiety, depression, and PTSD. Rest of the history and rest of the chart are also reviewed. HOME MEDICATIONS: Reviewed, vitamin D3. Doses and rest of the medications are reviewed. ALLERGIES: Onions. FAMILY HISTORY: History of hypertension in the family. SOCIAL HISTORY: No history of smoking. Occasional alcohol intake. REVIEW OF SYSTEMS: Fourteen-point review is negative except as mentioned earlier. PHYSICAL EXAMINATION: VITAL SIGNS: Pulse is 81, blood pressure 110/87, respirations 14. HEENT: Conjunctivae are normal. NECK: No jugular venous distention. CARDIOVASCULAR: S1 and S2 muffled. RESPIRATORY: Breath sounds diminished at the bases. No rhonchi. No crackles. ABDOMEN: Soft and nontender. LEGS: No edema. No swelling. NERVOUS SYSTEM: Higher functions normal. Cranial nerves 2nd through 12 grossly intact. No focal motor or sensory deficit. Gait is normal. SKIN: No ulcers or rashes. JOINTS: No active deforming arthropathy. LABORATORY DATA: Reviewed. ASSESSMENT: 1. Major depression with psychotic features. 2. Headache, possible migraine. 3. History of thyroid disorder. 4. History of appendectomy. 5. History of anxiety, depression, and posttraumatic stress disorder. RECOMMENDATIONS AND DISCUSSION: This 33-year-old woman presented for psychiatric evaluation is medically stable at this time. I would recommend Tylenol p.r.n. or Imitrex if the pain is not getting better. Otherwise, I would also recommend TSH to rule out the possibility of any thyroid abnormalities also. I recommend a close followup with primary physician in an outpatient setting. MMODL / IJN: [id number] /
[2023-08-05] MEDS: traZODone HCL 50 MG TAB PO SCH (22:04)
[2023-08-06] MEDS: LEVOTHYROXINE 100 MCG TAB PO SCH (06:46)
[2023-08-06 07:44] LABS: Basophils % (A) 1 %; Eosinophils # (A) 0.1 k/uL (0-0.7); Eosinophils % (A) 1 %; HCT 38.9 % (34.0-46.0); HGB 13.2 gm/dL (11.4-16.0); Lymphocytes # (A) 1.9 k/uL (1.0-4.8); Lymphocytes % (A) 33 %; MCH 28.2 pg (25.0-35.0); MCHC 33.9 g/dL (31.0-37.0); MCV 83.3 fL (80.0-100.0); Mean Platelet Volume 7.6; Monocytes # (A) 0.3 k/uL (0-1.0); Monocytes % (A) 5 %; Neutrophils # (A) 3.3 k/uL (1.3-7.7); Neutrophils % (A) 58 %; Platelet Count 337 k/uL (150-450); RBC 4.67 m/uL (3.80-5.40); RDW 12.2 % (11.5-15.5); WBC 5.7 k/uL (3.8-10.6)
[2023-08-06 08:02] LABS: ALT 30 U/L (4-34); AST 27 U/L (14-36); African American GFR (CKD) >90 (>60 ml/min/1.73 sqM); Albumin 4.4 g/dL (3.5-5.0); Alkaline Phosphatase <20 U/L (38-126); Anion Gap 11 mmol/L; Bilirubin, Delta 0.2 mg/dL (0.0-0.2); Bilirubin,Unconjugated 0.5 mg/dL (0.0-1.1); Blood Urea Nitrogen 10 mg/dL (7-17); Calcium 9.6 mg/dL (8.4-10.2); Carbon Dioxide 24 mmol/L (22-30); Chloride 103 mmol/L (98-107); Glucose 113 mg/dL (74-99); Non-African American GFR(CKD) >90 (>60 ml/min/1.73 sqM); Potassium 4.4 mmol/L (3.5-5.1); Sodium 138 mmol/L (137-145); Total Bilirubin 0.7 mg/dL (0.2-1.3); Total Protein 7.3 g/dL (6.3-8.2)
[2023-08-06] MEDS: DOCUSATE 100 MG CAP PO SCH (08:15)
[2023-08-06] MEDS: CHOLECALCIFEROL 125 MCG (5000 IU) TABLET PO SCH (08:15)
[2023-08-06] MEDS: LORATADINE 10 MG TAB PO SCH (08:16)
[2023-08-06] MEDS: SPRINTEC PO SCH (08:16)
[2023-08-06] MEDS: lamoTRIgine 25 MG TAB PO SCH ×2 (08:16→21:51)
--- NOTE | 2023-08-06 10:32 | P.PN ---
Progress Note - Text Progress Note Date: 08/06/23 Interval History: Patient was seen wandering the hallways, and was directable and agreeable to speak with software writer in the office. Patient states she's 'good' and a little nauseous from the medication last night. Patient counseled on side effects, and they should subside in a day or two. Patient did claim that having breakfast helped with the upset stomach. Patient is trying to go to most groups. Claims she slept well last night. Patient focused on discharge, and states that being here increases her anxiety. She misses her children. Continues to minimize need for treatment and minimize need for hospitalization, continues to have superficial/poor insight. Counseled on the need for treatment, and stabilization. Patient states she is practicing coping mechanisms. At this time patient denies any suicidal or homical ideations, intent or plan. Patient denies any auditory, visual hallucinations and denies any paranoia or delusions. Patient denies any side effects from the medications and has been compliant with meds. Mental Status Exam: General Appearance: Patient appears to be younger than stated age is alert, wearing street clothes, glasses, short hair, thin build. several tattoos. directable, and attempts to cooperate. Patient appears to have fair hygiene and grooming. Behavior: Patient is seated without any agitated behavior. poor eye contact. evasive, gaurded. mildly improving Speech: Patient's speech is fluent and nonpressured, quiet tone. mildly improv ing Mood/Affect: Patient reports their mood is stressed/depressed and anxious, affect is congruent and constricted. minimizing Suicidality/Homicidality: Patient denies having any homicidal ideation intent or plan. Denies any suicidal ideations intent or plan Perceptions: Patient denies any visual hallucinations and denies any auditory hallucinations. Though content/process: There is no evidence of any delusional thought content and thought process is linear and goal-directed. concrete, poverty of content. focused on discharge Memory and concentration: AOX3, grossly intact for the purposes of this session Judgment and insight: poor, mildly improving. 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 Patient has signed adult voluntary form and medication consent and is placed in patient's chart. -Medications : Lamictal 25 bid for mood stabilization/depression Patient advised to watch for a rash, and to let nursing staff know if this happens. Zoloft 50mg po qhs for mood/anxiety trazadone 25mg po qhs for mood/insomnia -Ativan PRN for agitation/aggression -SW on board for discharge planning. Encourage patient to participate in groups to work on coping skills. likely discharge early next week if patient improves.
[2023-08-06 16:35] LABS: LDL Cholesterol,Calculated 137.1 mg/dL (0.0-131.0)
[2023-08-06] MEDS: SERTRALINE 50 MG TAB PO SCH (21:51)
[2023-08-06] MEDS: MAGNESIUM OXIDE 400 MG TAB PO SCH (21:51)
[2023-08-06] MEDS: traZODone HCL 50 MG TAB PO SCH (21:51)
[2023-08-07] MEDS: LEVOTHYROXINE 100 MCG TAB PO SCH (06:55)
[2023-08-07] MEDS: CHOLECALCIFEROL 125 MCG (5000 IU) TABLET PO SCH (08:28)
[2023-08-07] MEDS: DOCUSATE 100 MG CAP PO SCH ×2 (08:28→13:18)
[2023-08-07] MEDS: LORATADINE 10 MG TAB PO SCH (08:28)
[2023-08-07] MEDS: lamoTRIgine 25 MG TAB PO SCH ×2 (08:28→21:18)
[2023-08-07] MEDS: SPRINTEC PO SCH (08:28)
--- NOTE | 2023-08-07 11:16 | P.PN ---
Progress Note - Text Progress Note Date: 08/07/23 Interval history: Patient was seen wandering the hallways, and was directable and agreeable to speak with investigative writer in the office. Patient is going to most groups. Claims she slept well last night. Patient focused on discharge, Continues to minimize need for treatment and minimize need for hospitalization, continues to be superficial, explained discharge has to hold off until Thursday, to make sure she's stable and the medication is working. Patient becomes tearful with this in formation, and states it is making her anxious being in here. Patient states she has an itchy rash, will continue to monitor. Counseled on the need for treatment.. Patient states she is practicing coping mechanisms. At this time patient denies any suicidal or homical ideations, intent or plan. Patient denies any auditory, visual hallucinations and denies any paranoia or delusions. Patient denies any side effects from the medications and has been compliant with meds. Mental Status Exam: General Appearance: Patient appears to be younger than stated age is alert, wearing street clothes, glasses, short hair, thin build. several tattoos. directable, and attempts to cooperate. Patient appears to have fair hygiene and grooming. Behavior: Patient is seated without any agitated behavior., guarded.minimizing, superficial mildly improving Speech: Patient's speech is fluent and nonpressured, quiet tone. improving Mood/Affect: Patient reports their mood is stressed/depressed and anxious, affect is congruent and constricted. minimizing mildly improving Suicidality/Homicidality: Patient denies having any homicidal ideation intent or plan. Denies any suicidal ideations intent or plan Perceptions: Patient denies any visual hallucinations and denies any auditory hallucinations. Though content/process: There is no evidence of any delusional thought content and thought process is linear and goal-directed. focused on discharge. minimizing need for hospitalization. Memory and concentration: AOX3, grossly intact for the purposes of this session Judgment and insight: poor/superficial, mildly improving. 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 Patient has signed adult voluntary form and medication consent and is placed in patient's chart. -Medications : Lamictal 25 bid for mood stabilization/depression Patient advised to watch for a rash, and to let nursing staff know if this happens. Zoloft 50mg po qhs for mood/anxiety trazadone 25mg po qhs for mood/insomnia -Ativan PRN for agitation/aggression -SW on board for discharge planning. Encourage patient to participate in groups to work on coping skills. likely discharge Thursday if patient improves.
[2023-08-07] MEDS: SERTRALINE 50 MG TAB PO SCH (21:18)
[2023-08-07] MEDS: MAGNESIUM OXIDE 400 MG TAB PO SCH (21:18)
[2023-08-07] MEDS: traZODone HCL 50 MG TAB PO SCH (21:46)
[2023-08-08] MEDS: LEVOTHYROXINE 100 MCG TAB PO SCH (08:18)
[2023-08-08] MEDS: LORATADINE 10 MG TAB PO SCH (08:19)
[2023-08-08] MEDS: DOCUSATE 100 MG CAP PO SCH ×2 (08:19→09:15)
[2023-08-08] MEDS: lamoTRIgine 25 MG TAB PO SCH ×2 (09:14→22:39)
[2023-08-08] MEDS: SPRINTEC PO SCH (09:14)
[2023-08-08] MEDS: CHOLECALCIFEROL 125 MCG (5000 IU) TABLET PO SCH (09:15)
--- NOTE | 2023-08-08 11:47 | P.PN ---
Progress Note - Text Progress Note Date: 08/08/23 Interval history: Patient was seen bedside this morning. She states that her anxiety is much better controlled than it was prior to hospitalization. She describes at length the situations leading up to hospitalization including work stress and feeling overwhelmed with balancing work and personal life. She plans to sit down with her boss and discuss changes that might be made to help her decrease stress at work. 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 Although patient continues to be returning back to thoughts about discharge, she is able to be redirected towards the coping skills that she might gain while hospitalized. Patient was proud of herself for handling the news of not being discharged well. However, she is hopeful for being discharged on Thursday. She was encouraged to find methods of self-care that she may practice regularly. Patient reports tolerating the medications well and denies concerns. She states that her mood is "better". She endorses fair energy. She reports having had some trouble sleeping the night before. At this time patient denies any suicidal or homicidal ideation, intent or plan. Patient denies any auditory, visual hallucinations and denies any paranoia or delusions. Patient denies any side effects from the medications and has been compliant with meds. Denies any rashes. Mental Status Exam: General Appearance: Patient appears to be younger than stated age is alert, wearing street clothes, glasses, short hair, thin build. several tattoos. directable, and attempts to cooperate. Patient appears to have fair hygiene and grooming. Behavior: Patient is seated without any agitated behavior. Minimizing Speech: Patient's speech is fluent and nonpressured, quiet tone. Some stuttering at times Mood/Affect: Patient reports their mood is "better" but objectively anxious, affect is congruent. Suicidality/Homicidality: Patient denies having any homicidal ideation intent or plan. Denies any suicidal ideations intent or plan Perceptions: Patient denies any visual hallucinations and denies any auditory hallucinations. Though content/process: There is no evidence of any delusional thought content and thought process is linear and goal-directed. focused on discharge. Memory and concentration: AOX3, grossly intact for the purposes of this session Judgment and insight: poor/superficial, mildly improving. 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 Patient has signed adult voluntary form and medication consent and is placed in patient's chart. -Medications : Lamictal 25 bid for mood stabilization/depression. Patient advised to watch for a rash, and to let nursing staff know if this happens. Increase Zoloft to 100mg po qhs for mood/anxiety trazadone 25mg po qhs for mood/insomnia -Ativan PRN for agitation/aggression -SW on board for discharge planning. Encourage patient to participate in groups to work on coping skills. likely discharge Thursday if patient improves.
[2023-08-08] MEDS: SERTRALINE 50 MG TAB PO SCH (22:39)
[2023-08-08] MEDS: traZODone HCL 50 MG TAB PO SCH (22:39)
[2023-08-08] MEDS: MAGNESIUM OXIDE 400 MG TAB PO SCH (22:39)
[2023-08-09] MEDS: LEVOTHYROXINE 100 MCG TAB PO SCH (05:50)
[2023-08-09 07:35] VITALS: RESP 14
[2023-08-09] MEDS: DOCUSATE 100 MG CAP PO SCH ×2 (09:06→09:46)
[2023-08-09] MEDS: LORATADINE 10 MG TAB PO SCH (09:06)
[2023-08-09] MEDS: CHOLECALCIFEROL 125 MCG (5000 IU) TABLET PO SCH (09:06)
[2023-08-09] MEDS: SERTRALINE 100 MG TAB PO SCH (09:06)
[2023-08-09] MEDS: lamoTRIgine 25 MG TAB PO SCH ×2 (09:07→23:08)
[2023-08-09] MEDS: SPRINTEC PO SCH (09:07)
--- NOTE | 2023-08-09 13:38 | P.PN ---
Progress Note - Text Progress Note Date: 08/09/23 Interval history: Patient was seen bedside this morning. She says that she has been doing well since yesterday. She reports her mood to be "good ". She feels like she has just been board this weekend. However, she reports having spoken to her boss and that the concerns she had with work were sorted through. She also says that she has been thinking of plans for what to make for her children for [place] this year. She is future oriented and discusses her excitement over her plans. Patient reports that she's been doing well with the increased dose of Zoloft and plans to be compliant with her medications outpatient. She endorses sleeping relatively well at night but has noticed becoming more hot at night since being on the medications. Discussed that this is a common side effect and patient says that it has been manageable. She reports good appetite and good energy during the day today. She denies all other concerns. At this time patient denies any suicidal or homicidal ideation, intent or plan. She is future oriented. Patient denies any auditory, visual hallucinations and denies any paranoia or delusions. Patient denies any other side effects from the medications and has been compliant with meds. Denies any rashes. Mental Status Exam: General Appearance: Patient appears to be younger than stated age is alert, wearing street clothes, glasses, short hair, thin build. several tattoos. directable, and attempts to cooperate. Patient appears to have fair hygiene and grooming. Behavior: Patient is seated without any agitated behavior. Speech: Patient's speech is fluent and nonpressured, quiet tone. No stuttering today Mood/Affect: Patient reports their mood is "good" euthymic, affect is congruent. Suicidality/Homicidality: Patient denies having any homicidal ideation intent or plan. Denies any suicidal ideations intent or plan Perceptions: Patient denies any visual hallucinations and denies any auditory hallucinations. Though content/process: There is no evidence of any delusional thought content and thought process is linear and goal-directed. Memory and concentration: AOX3, grossly intact for the purposes of this session Judgment and insight: poor/superficial, mildly improving. 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 Patient has signed adult voluntary form and medication consent and is placed in patient's chart. -Medications : Lamictal 25 bid for mood stabilization/depression. Patient advised to watch for a rash, and to let nursing staff know if this happens. Continue Zoloft 100mg po qhs for mood/anxiety trazadone 25mg po qhs for mood/insomnia -Ativan PRN for agitation/aggression -SW on board for discharge planning. Encourage patient to participate in groups to work on coping skills. likely discharge Thursday as patient did well over the weekend
[2023-08-09] MEDS: MAGNESIUM OXIDE 400 MG TAB PO SCH (23:08)
[2023-08-09] MEDS: traZODone HCL 50 MG TAB PO SCH (23:08)
[2023-08-10] MEDS: LEVOTHYROXINE 100 MCG TAB PO SCH (06:52)
[2023-08-10 07:18] VITALS: BP 117/57; PULSE 84; TEMP 97.5
[2023-08-10] MEDS: SPRINTEC PO SCH (08:17)
[2023-08-10] MEDS: CHOLECALCIFEROL 125 MCG (5000 IU) TABLET PO SCH (08:17)
[2023-08-10] MEDS: lamoTRIgine 25 MG TAB PO SCH (08:18)
[2023-08-10] MEDS: LORATADINE 10 MG TAB PO SCH (08:18)
[2023-08-10] MEDS: DOCUSATE 100 MG CAP PO SCH (08:18)
[2023-08-10] MEDS: SERTRALINE 100 MG TAB PO SCH (08:18)
--- NOTE | 2023-08-10 09:41 | P.DS ---
Providers Date of admission: 08/05/23 01:56 Expected date of discharge: 08/10/23 Attending physician: Surinder Camacho MD Consults: 08/05/23 02:14 Consult Physician Routine Consulting Provider: Mark Breen Consult Reason/Comments: For H & P for Medical Follow Up Do you want consulting provider notified?: Yes, Notify in am Primary care physician: Hima Barber - Discharge Diagnosis(es) (1) Major depressive disorder without psychotic features Current Visit: Yes Status: Acute Priority: High (2) Anxiety disorder Current Visit: Yes Status: Acute Priority: Medium Hospital Course: Admission HPI: Admission note was completed by lead technical writer. Patient presented to the hospital [to ED on 08/04, as per EPS note " brought in by ex whom she lives with due to SI w plan to OD on medications. Patient reports not wanting to live anymore, overwhelmed, feels like a failure,numb/existing in life, low motivation,loss of interest, tearful, racing thoughts, tangential, thought blocking, depression, anxiety for last 2 yrs with hx of significant loses over last 7 yrs. Patient reports being hypervigilant, fatigued, wanting to sleep, not interacting with children, guilt and shame." Patient was seen today in the office. States that she was having bad thoughts, and a 'close call' with wanting to OD, to go to sleep forever. patient was fairly constricted, vague and evasive about information. States she has a few medications at home that would help her achieve this. Patient had her ex bring her to the ED. She states she had a "brave moment" and decided to not do it because of her kids. States stressors include several things, and that she cannot pin point an exact reason. States her boss said "something stupid and degrading" directed toward her, and that se emed to be the final straw. Other stressors include having an autistic child, that has bad behaviors that are hard to control. Claims financial issues, however she still stresses out about it. Denies relationship issues. States she's prescribed Xanax, for anxiety, however it's not really helping. Claims her sleep is not very well, and only sleeps a broken 3-4 hours per night. Her appetite is not good. Patient denies any currnet suicidal or homicidal ideations intent or plan. At this time patient denies any auditory or visual hallucinations. Patient denies any flight of ideas racing thoughts and increased in goal directed behavior. Patient denies drugs/nicotine. Drinks alcohol Hospital course: Upon admission to the unit patient was directable and agreeable to commence treatment and signed adult voluntary form. Patient got along well with other patients on the unit and followed unit protocol. Patient was compliant with the medications and denied any side effects throughout hospital course. Patient was started on her home dose of Lamictal 25 mg twice a day for mood stabilization/depression, Zoloft 100 mg daily for mood/anxiety, trazodone 25 mg daily at bedtime when necessary for insomnia/mood. Patient spoke of her stressors and engaged in therapy both group and individual. Patient was also seen by medical team for history and physical exam. Throughout the course of the hospitalization patient gradually improved with regards to mood, anxiety, suicidal thoughts, sleep and became more future oriented with improved insight and judgment. On the day of discharge patient denied any suicidal or homicidal ideations intent or plan denied any auditory or visual hallucinations. Patient endorsed wanting to live for her kids and her future. The patient denied any access to guns or weapons. Patient denied any paranoia and did not endorse any delusions. Patient does not have a significant history of substance abuse and was counseled on abstaining from all substances including alcohol and marijuana. Patient was also counseled on the medications and need for regular compliance and was encouraged to follow-up with their outpatient appointment for mental health and also for primary care. Prior to discharge a family meeting will be arranged by adoption social worker to answer any questions and ensure safety upon discharge. warehouse worker to ensure there are no guns or weapons in the house. Mental status exam: General Appearance: Patient appears to be wearing glasses, stated age is alert, pleasant, and cooperative. Patient is in no acute distress and has improved hygiene and grooming Behavior: Patient is calmly seated without any agitated behavior. Speech: Patient's speech is fluent and nonpressured. Mood/Affect: Patient reports their mood is "good", affect is congruent and euthymic. Suicidality/Homicidality: Patient denies having any suicidal or homicidal ideation intent or plan. Perceptions: Patient denies any auditory or visual hallucinations. Though content/process: There is no evidence of any delusional thought content and thought process is linear and goal-directed. more future oriented Memory and concentration: AOX3, grossly intact for the purposes of this session. Can spell "WORLD" backwards correctly. Judgment and insight: improved with guarded prognosis Impression: Major depression disorder without psychotic features anxiety disorder Plan: -Continue with discharge today as patient has improved and stabilized psychiatrically and is not currently an imminent threat to herself and/or others. -Continue medications: Lamictal 25 mg twice a day for mood stabilization/depression, Zoloft 100 mg daily for mood/anxiety, trazodone 25-50 mg daily at bedtime when necessary for insomnia. -Patient was counseled on the need for medication compliance and appropriate follow-up at mental health and also primary care for medical issues. Patient verbalized understanding and agreed. -Social work to arrange for and conduct family meeting to ensure safety upon discharge and answer any questions/concerns. Social work also to arrange for patients follow up appointments for psychiatric care along with follow up with primary care provider. -Patient counseled on abstaining from recreational drugs and marijuana and alcohol. Was informed/educated on the adverse effects on their physical and mental health. Patient verbally agreed and understood. -Patient was instructed to return to the hospital or seek immediate medical care if their psychiatric or medical symptoms do worsen or reoccur. Allergies Allergy/AdvReac Type Severity Reaction Status Date / Time onion AdvReac Nausea & Verified 08/05/23 10:50 Vomiting & Diarrhea [id number]-[id number] Reductase AdvReac Rash/Hives Verified 08/05/23 10:50 Inhibitor Allergies Allergy/AdvReac Type Severity Reaction Status Date / Time onion AdvReac Nausea & Verified 08/05/23 10:50 Vomiting & Diarrhea Raafmcl-[id number] Reductase AdvReac Rash/Hives Verified 08/05/23 10:50 Inhibitor Laboratory Results WBC 5.7 k/uL (3.8-10.6) 08/06/23 07:12 RBC 4.67 m/uL (3.80-5.40) 08/06/23 07:12 Hgb 13.2 gm/dL (11.4-16.0) 08/06/23 07:12 Hct 38.9 % (34.0-46.0) 08/06/23 07:12 MCV 83.3 fL (80.0-100.0) 08/06/23 07:12 MCH 28.2 pg (25.0-35.0) 08/06/23 07:12 MCHC 33.9 g/dL (31.0-37.0) 08/06/23 07:12 RDW 12.2 % (11.5-15.5) 08/06/23 07:12 Plt Count 337 k/uL (150-450) 08/06/23 07:12 MPV 7.6 08/06/23 07:12 Neutrophils % 58 % 08/06/23 07:12 Lymphocytes % 33 % 08/06/23 07:12 Monocytes % 5 % 08/06/23 07:12 Eosinophils % 1 % 08/06/23 07:12 Basophils % 1 % 08/06/23 07:12 Neutrophils # 3.3 k/uL (1.3-7.7) 08/06/23 07:12 Lymphocytes # 1.9 k/uL (1.0-4.8) 08/06/23 07:12 Monocytes # 0.3 k/uL (0-1.0) 08/06/23 07:12 Eosinophils # 0.1 k/uL (0-0.7) 08/06/23 07:12 Basophils # 0.0 k/uL (0-0.2) 08/06/23 07:12 Sodium 138 mmol/L (137-145) 08/06/23 07:12 Potassium 4.4 mmol/L (3.5-5.1) 08/06/23 07:12 Chloride 103 mmol/L (98-107) 08/06/23 07:12 Carbon Dioxide 24 mmol/L (22-30) 08/06/23 07:12 Anion Gap 11 mmol/L 08/06/23 07:12 BUN 10 mg/dL (7-17) 08/06/23 07:12 Creatinine 0.60 mg/dL (0.52-1.04) 08/06/23 07:12 Est GFR (CKD-EPI)AfAm >90 (>60 ml/min/1.73 sqM) 08/06/23 07:12 Est GFR (CKD-EPI)NonAf >90 (>60 ml/min/1.73 sqM) 08/06/23 07:12 Glucose 113 mg/dL (74-99) H 08/06/23 07:[address] Glu mg/dL 131 mg/dL 08/06/23 07:12 Hemoglobin A1c 6.2 % (<=6.0) H 08/06/23 07:12 Calcium 9.6 mg/dL (8.4-10.2) 08/06/23 07:12 Total Bilirubin 0.7 mg/dL (0.2-1.3) 08/06/23 07:12 Conjugated Bilirubin 0.0 mg/dL (0.0-0.3) 08/06/23 07:12 Unconjugated Bilirubin 0.5 mg/dL (0.0-1.1) 08/06/23 07:12 Delta Bilirubin 0.2 mg/dL (0.0-0.2) 08/06/23 07:12 AST 27 U/L (14-36) 08/06/23 07:12 ALT 30 U/L (4-34) 08/06/23 07:12 Alkaline Phosphatase <20 U/L (38-126) L 08/06/23 07:12 Total Protein 7.3 g/dL (6.3-8.2) 08/06/23 07:12 Albumin 4.4 g/dL (3.5-5.0) 08/06/23 07:12 Triglycerides 194.00 mg/dL (0.00-149.00) H 08/06/23 07:12 Cholesterol 221.00 mg/dL (0.00-200.00) H 08/06/23 07:12 LDL Cholesterol, Calc 137.1 mg/dL (0.0-131.0) H 08/06/23 07:12 VLDL Cholesterol, Calc 38.80 mg/dL (5.00-40.00) 08/06/23 07:12 HDL Cholesterol 45.10 mg/dL (40.00-60.00) 08/06/23 07:12 Cholesterol/HDL Ratio 4.90 Ratio 08/06/23 07:12 TSH 0.889 mIU/L (0.465-4.680) 08/06/23 07:12 Urine Color Light Yellow 08/05/23 00:21 Urine Appearance Clear (Clear) 08/05/23 00:21 Urine pH 6.0 (5.0-8.0) 08/05/23 00:21 Ur Specific [place] 1.010 (1.001-1.035) 08/05/23 00:21 Urine Protein Negative (Negative) 08/05/23 00:21 Urine Glucose (UA) Negative (Negative) 08/05/23 00:21 Urine Ketones Negative (Negative) 08/05/23 00:21 Urine Blood Negative (Negative) 08/05/23 00:21 Urine Nitrite Negative (Negative) 08/05/23 00:21 Urine Bilirubin Negative (Negative) 08/05/23 00:21 Urine Urobilinogen 0.2 mg/dL (<2.0) 08/05/23 00:21 Ur Leukocyte Esterase Moderate (Negative) H 08/05/23 00:21 Urine RBC 2 /hpf (0-5) 08/05/23 00:21 Urine WBC 12 /hpf (0-5) H 08/05/23 00:21 Ur Squamous Epith Cells 3 /hpf (0-4) 08/05/23 00:21 Urine Bacteria Few /hpf (None) H 08/05/23 00: Urine Mucus Moderate /hpf (None) H 08/05/23 00:21 Urine HCG, Qual Not Detected (Not Detectd) 08/05/23 00:21 Urine Opiates Screen Not Detected (NotDetected) 08/05/23 00:21 Ur Oxycodone Screen Not Detected (NotDetected) 08/05/23 00:21 Urine Methadone Screen Not Detected (NotDetected) 08/05/23 00:21 Ur Propoxyphene Screen Not Detected (NotDetected) 08/05/23 00:21 Ur Barbiturates Screen Not Detected (NotDetected) 08/05/23 00:21 U Tricyclic Antidepress Not Detected (NotDetected) 08/05/23 00:21 Ur Phencyclidine Scrn Not Detected (NotDetected) 08/05/23 00:21 Ur Amphetamines Screen Not Detected (NotDetected) 08/05/23 00:21 U Methamphetamines Scrn Not Detected (NotDetected) 08/05/23 00:21 U Benzodiazepines Scrn Not Detected (NotDetected) 08/05/23 00:21 Urine Cocaine Screen Not Detected (NotDetected) 08/05/23 00:21 U Marijuana (THC) Screen Not Detected (NotDetected) 08/05/23 00:21 SARS-CoV-2 (PCR) Not Detected (Not Detectd) 08/05/23 00:10 Vital Signs Temp 97.5 F L 08/10/23 07:01 Pulse 84 08/10/23 07:01 Resp 14 08/10/23 07:01 BP 117/57 08/10/23 07:01 Pulse Ox 97 08/08/23 08:17 FiO2 Intake & Output 08/09/23 08/10/23 08/10/23 18:59 06:59 18:59 Weight 58.6 kg Patient Condition at Discharge: Stable Plan - Discharge Summary Discharge Rx Participant: Yes New Discharge Prescriptions: New Sertraline [Zoloft] 100 mg PO DAILY 30 Days #30 tab traZODone HCL [Desyrel] 25 - 50 mg PO HS PRN 30 Days #30 tab PRN Reason: Insomnia Continue [place]-3/Dha/Epa/Fish Oil [Fish Oil 1,000 mg Softgel] 1 cap PO DAILY Ibuprofen [Motrin] 800 mg PO TID PRN PRN Reason: Pain Docusate [Colace] 100 mg PO DAILY 30 Days #30 cap norgestimate-ethinyl estradioL [Sprintec 28 Day Tablet] 1 tab PO DAILY Albuterol Sulfate [Ventolin HFA] 2 puff INHALATION RT-Q4H PRN PRN Reason: Shortness Of Breath Levothyroxine Sodium [Synthroid] 100 mcg PO DAILY Fexofenadine HCl [[place] Allergy] 180 mg PO DAILY lamoTRIgine [LaMICtal] 25 mg PO BID 30 Days #60 tab Magnesium Oxide [Mag-Ox] 400 mg PO HS 30 Days #30 tab Cholecalciferol (Vitamin D3) [Vitamin D3 (125 MCG = 5,000 IU)] 125 mcg PO DAILY 30 Days #30 cap Discontinued Cariprazine HCl [Vraylar] 1.5 mg PO DAILY ALPRAZolam [Xanax] 0.5 mg PO BID PRN PRN Reason: Anxiety Potassium Chloride ER [K-Dur 10] 10 meq PO DIRECTED Discharge Medication List Albuterol Sulfate [Ventolin HFA] 2 puff INHALATION RT-Q4H PRN 08/05/23 [History] Fexofenadine HCl [[place] Allergy] 180 mg PO DAILY 08/05/23 [History] Ibuprofen [Motrin] 800 mg PO TID PRN 08/05/23 [History] Levothyroxine Sodium [Synthroid] 100 mcg PO DAILY 08/05/23 [History] [place]-3/Dha/Epa/Fish Oil [Fish Oil 1,000 mg Softgel] 1 cap PO DAILY 08/05/23 [History] norgestimate-ethinyl estradioL [Sprintec 28 Day Tablet] 1 tab PO DAILY 08/05/23 [History] Cholecalciferol (Vitamin D3) [Vitamin D3 (125 MCG = 5,000 IU)] 125 mcg PO DAILY 30 Days #30 cap 08/10/23 [Rx] Docusate [Colace] 100 mg PO DAILY 30 Days #30 cap 08/10/23 [Rx] Magnesium Oxide [Mag-Ox] 400 mg PO HS 30 Days #30 tab 08/10/23 [Rx] Sertraline [Zoloft] 100 mg PO DAILY 30 Days #30 tab 08/10/23 [Rx] lamoTRIgine [LaMICtal] 25 mg PO BID 30 Days #60 tab 08/10/23 [Rx] traZODone HCL [Desyrel] 25 - 50 mg PO HS PRN 30 Days #30 tab 08/10/23 [Rx] Follow up Appointment(s)/Referral(s): Hima Barber MD [Primary Care Provider] - 1-2 days Activity/Diet/Wound Care/Special Instructions: Avoid the use of street drugs and alcohol. Take all medications as prescribed. When you are in need of refills on your medications, please contact your medical provider and/or outpatient psychiatrist/provider to have this done. Please go to your scheduled outpatient appointment for aftercare treatment. If symptoms return or become worse, call the crisis line at and/or go to the nearest emergency room for evaluation. National Suicide Hotline 988. Discharge Disposition: HOME SELF-CARE
== END 2023-08-10 12:14 | disposition home or self-care (01) | DRG 751 ==
LOC: EC 20:29 → SUPCPDRO 20:29 → 3MHU 08-05 01:56
PROVIDERS: ADMIT Psychiatry & Neurology Psychiatry; ATTEND Psychiatry & Neurology Psychiatry
DX: F32.2 Major depressive disorder, single episode, severe without psychotic features (principal); F43.20 Adjustment disorder, unspecified; F43.10 Post-traumatic stress disorder, unspecified; G47.00 Insomnia, unspecified; F41.9 Anxiety disorder, unspecified; E03.9 Hypothyroidism, unspecified; R45.851 Suicidal ideations; Z59.86 Financial insecurity; Z79.890 Hormone replacement therapy; Z79.899 Other long term (current) drug therapy; Z86.32 Personal history of gestational diabetes; Z90.49 Acquired absence of other specified parts of digestive tract; Z11.52 Encounter for screening for COVID-19; Z28.310 Unvaccinated for COVID-19; Z28.21 Immunization not carried out because of patient refusal; Z88.8 Allergy status to other drugs, medicaments and biological substances
CPT/HCPCS: 80053; 80061; 80306; 81001; 81025; 82075; 82248; 83036; 84443; 85025; 87635; 99285

== ENCOUNTER 2023-12-23 21:33 | Emergency (ER) | payer OTHER ==
[2023-12-23 21:54] VITALS: PULSE 102; TEMP 98.7
[2023-12-23 22:12] LABS: Basophils % (A) 0 %; Eosinophils # (A) 0.2 k/uL (0-0.7); Eosinophils % (A) 2 %; HCT 39.9 % (34.0-46.0); HGB 13.3 gm/dL (11.4-16.0); Lymphocytes # (A) 1.4 k/uL (1.0-4.8); Lymphocytes % (A) 17 %; MCH 27.8 pg (25.0-35.0); MCHC 33.3 g/dL (31.0-37.0); MCV 83.4 fL (80.0-100.0); Mean Platelet Volume 8.1; Monocytes # (A) 0.3 k/uL (0-1.0); Monocytes % (A) 4 %; Neutrophils # (A) 6.3 k/uL (1.3-7.7); Neutrophils % (A) 76 %; Platelet Count 296 k/uL (150-450); RBC 4.78 m/uL (3.80-5.40); RDW 12.9 % (11.5-15.5); WBC 8.3 k/uL (3.8-10.6)
[2023-12-23 22:17] LABS: INR 1.1 (<1.2); Partial Thromboplastin Time 25.8 sec (22.0-30.0)
[2023-12-23 22:23] LABS: ALT 20 U/L (4-34); AST 23 U/L (14-36); African American GFR (CKD) >90 (>60 ml/min/1.73 sqM); Albumin 4.6 g/dL (3.5-5.0); Alkaline Phosphatase 20 U/L (38-126); Anion Gap 9 mmol/L; Blood Urea Nitrogen 11 mg/dL (7-17); Calcium 9.2 mg/dL (8.4-10.2); Carbon Dioxide 23 mmol/L (22-30); Chloride 106 mmol/L (98-107); Glucose 128 mg/dL (74-99); Magnesium 1.4 mg/dL (1.6-2.3); Non-African American GFR(CKD) >90 (>60 ml/min/1.73 sqM); Potassium 3.8 mmol/L (3.5-5.1); Sodium 138 mmol/L (137-145); Total Bilirubin 0.6 mg/dL (0.2-1.3); Total Protein 7.5 g/dL (6.3-8.2)
[2023-12-24] MEDS: SODIUM CHLORIDE 0.9% 1,000 ML IV ONE (00:07)
[2023-12-24 00:46] VITALS: BP 123/77; RESP 16
[2023-12-24] MEDS: KETOROLAC 15 MG/ML 1 ML VIAL IVP STA (01:55)
[2023-12-24] MEDS: MAGNESIUM OXIDE 400 MG TAB PO STA (03:05)
--- NOTE | 2023-12-24 03:07 | ED ---
Dizziness HPI - General Chief Complaint: Syncope Stated Complaint: Syncope and collapse, weakness, Leg Numbness Time Seen by Provider: 12/23/23 23:08 Source: patient Mode of arrival: ambulatory Limitations: no limitations - History of Present Illness Initial Comments: 33-year-old female presenting with chief complaint of syncope. Patient states that she had 2 syncopal episodes today. One was earlier today while at work states that she was sitting down when this occurred. The second 1 happened later today after she had transition from sitting to standing at home. States that neither time did she hit her head, her was there to prevent her f rom hitting her head. She right now complains of a "heaviness" in the bilateral legs. She states that she also feels "shaky". No chest pain or difficulty breathing. No fever, chills, cough, congestion, sore throat. No vomiting or abdominal pain. - Related Data Home Medications Medication Instructions Recorded Confirmed Albuterol Sulfate [Ventolin HFA] 2 puff INHALATION RT-Q4H PRN 08/05/23 08/05/23 Fexofenadine HCl [Akosua Allergy] 180 mg PO DAILY 08/05/23 08/05/23 Ibuprofen [Motrin] 800 mg PO TID PRN 08/05/23 08/05/23 Levothyroxine Sodium [Synthroid] 100 mcg PO DAILY 08/05/23 08/05/23 [place]-3/Dha/Epa/Fish Oil [Fish Oil 1 cap PO DAILY 08/05/23 08/05/23 1,000 mg Softgel] norgestimate-ethinyl estradioL 1 tab PO DAILY 08/05/23 08/05/23 [Sprintec 28 Day Tablet] Previous Rx's Medication Instructions Recorded Cholecalciferol (Vitamin D3) 125 mcg PO DAILY 30 Days #30 cap 08/10/23 [Vitamin D3 (125 MCG = 5,000 IU)] Docusate [Colace] 100 mg PO DAILY 30 Days #30 cap 08/10/23 Magnesium Oxide [Mag-Ox] 400 mg PO HS 30 Days #30 tab 08/10/23 Sertraline [Zoloft] 100 mg PO DAILY 30 Days #30 tab 08/10/23 lamoTRIgine [LaMICtal] 25 mg PO BID 30 Days #60 tab 08/10/23 traZODone HCL [Desyrel] 25 - 50 mg PO HS PRN 30 Days #30 08/10/23 tab Allergies Allergy/AdvReac Type Severity Reaction Status Date / Time onion AdvReac Nausea & Verified 12/23/23 21:46 Vomiting & Diarrhea Mricchr-FJR-MsN Reductase AdvReac Rash/Hives Verified 12/23/23 21:46 Inhibitor Review of Systems ROS Statement: Those systems with pertinent positive or pertinent negative responses have been documented in the HPI. ROS Other: All systems not noted in ROS Statement are negative. Past Medical History Past Medical History: Thyroid Disorder Additional Past Medical History / Comment(s): Obstetric history: And has had 3 previous vaginal deliveries and 1 spontaneous . This is her fifth . She's had care with me since 9 weeks gestation. Blood type is O+, antibodies negative, rubella immune, RPR nonreactive, hepatitis B-, HIV nonreactive. She failed early 1 hour test and was put on a insulin for gestational diabetes. NSTs had been reactive and growth ultrasounds normal. GBS negative. History of Any Multi-Drug Resistant Organisms: None Reported Past Surgical History: Appendectomy Additional Past Surgical History / Comment(s): 11-24-14 lap appy Past Anesthesia/Blood Transfusion Reactions: No Reported Reaction Past Psychological History: Anxiety, Depression, PTSD Smoking Status: Never smoker Past Alcohol Use History: Occasional Past Drug Use History: None Reported - Past Family History Mother Family Medical History: Hypertension, Thyroid Disorder Sister(s) Family Medical History: Syncope Father Family Medical History: COPD Additional Family Medical History / Comment(s): takes B-12 injections, has a problem absorbing B-12 Brother(s) Additional Family Medical History / Comment(s): takes B-12 injections, has a problem absorbing B-12 General Exam Limitations: no limitations General appearance: alert, in no apparent distress Head exam: Present: atraumatic, normocephalic Eye exam: Present: normal appearance, PERRL, EOMI Pupils: Present: normal accommodation Neck exam: Present: normal inspection. Absent: meningismus Respiratory exam: Present: normal lung sounds bilaterally. Absent: respiratory distress, wheezes, rales, rhonchi, stridor Cardiovascular Exam: Present: regular rate, normal rhythm, normal heart sounds. Absent: systolic murmur, diastolic murmur, rubs, gallop, clicks Extremities exam: Absent: pedal edema Neurological exam: Present: alert, oriented X3 Expanded Patient oriented to: Present: person, place, time Speech: Present: fluid speech Cranial nerves: EOM's Intact: Normal Cerebellar function: Finger to Nose: Normal, Heel to Nance: Normal Motor strength exam: RUE: 5, LUE: 5, RLE: 5, LLE: 5 Eye Response: (4) open spontaneously Motor Response: (6) obeys commands Verbal Response: (5) oriented [place] Total: 15 Psychiatric exam: Present: normal affect, normal mood Skin exam: Present: warm, dry Course Vital Signs 12/23/23 12/24/23 21:44 00:30 Temperature 98.7 F Pulse Rate 102 H Respiratory 20 16 Rate Blood Pressure 147/87 Blood Pressure 121/83 [Left Arm Sitting] Blood Pressure 131/82 [Left Arm Standing] Blood Pressure 123/77 [Left Arm Supine] O2 Sat by Pulse 96 97 Oximetry Medical Decision Making - Medical Decision Making Sinus tachycardia ventricular rate 104. VA interval 130. QRS 81. QT 317. QTc 377. Was pt. sent in by a medical professional or institution (, PA, CONTINUOUS CRUSHER OPERATOR, urgent care, hospital, or fdc...) When possible be specific @ -No Did you speak to anyone other than the patient for history (EMS, parent, family, police, friend...)? What history was obtained from this source @ -No Did you review nursing and triage notes (agree or disagree)? Why? @ -I reviewed and agree with nursing and triage notes Were old charts reviewed (outside hosp., previous admission, EMS record, old EKG, old radiological studies, urgent care reports/EKG's, fdc records)? Report findings @ -No old charts were reviewed Differential Diagnosis (chest pain, altered mental status, abdominal pain women, abdominal pain men, vaginal bleeding, weakness, fever, dyspnea, syncope, headache, dizziness, GI bleed, back pain, seizure, CVA, palpatations, mental health, musculoskeletal)? @ -MDM Differential Syncope: Valvular disease, hypertrophic cardiomyopathy, pulmonary embolism, tamponade, tachycardia, bradycardia, [place], hypovolemia, hemorrhage, dissection, anemia, intracranial hemorrhage, seizure, hypoglycemia, carbon monoxide poisoning this is not meant to be an all-inclusive list. EKG interpreted by me (3pts min.). @ -As above X-rays interpreted by me (1pt min.). @ -None done CT interpreted by me (1pt min.). @ -None done U/S interpreted by me (1pt. min.). @ -None done What testing was considered but not performed or refused? (CT, X-rays, U/S, labs)? Why? @ -None What meds were considered but not given or refused? Why? @ -None Did you discuss the management of the patient with other professionals (professionals i.e. DrCinthia, PA, CONTINUOUS CRUSHER OPERATOR, lab, RT, psych nurse, social contact worker, wrap knitting machine operator, teacher, safety patrol officer, correctional case manager)? Give summary @ -No Was smoking cessation discussed for >3mins.? @ -No Was critical care preformed (if so, how long)? @ -No Were there social determinants of health that impacted care today? How? (Homelessness, low income, unemployed, alcoholism, drug addiction, transportation, low edu. Level, literacy, decrease access to med. care, shelter, rehab)? @ -No Was there de-escalation of care discussed even if they declined (Discuss DNR or withdrawal of care, Hospice)? DNR status @ -No What co-morbidities impacted this encounter? (DM, HTN, Smoking, COPD, CAD, Cancer, CVA, ARF, Chemo, Hep., AIDS, mental health diagnosis, sleep apnea, morbid obesity)? @ -None Was patient admitted / discharged? Hospital course, mention meds given and route, prescriptions, significant lab abnormalities, going to OR and other pertinent info. @ -33-year-old female presenting with chief complaint of syncopal episode. She had 2 syncopal episodes today. Workup is initiated by triage. Patient is later placed in a hallway bed and evaluated by myself. History and physical exam are conducted. Lab work shows no leukocytosis or anemia. Negative D-dimer and troponin. Magnesium is 1.4, patient will receive replacement. Initial EKG sh ows sinus tachycardia, patient's heart rate has improved. Negative orthostatic vitals. on reassessment she is resting in the bed showing no acute signs of distress. Patient is educated on today's findings. Follow-up with PCP. Report back to ER with any new or worsening symptoms. Discussed return parameters and answered all questions. Patient conveyed verbal understanding and agreed to the plan. I discussed this case in detail with my attending Dr. Amaya Undiagnosed new problem with uncertain prognosis? @ -No Drug Therapy requiring intensive monitoring for toxicity (Heparin, Nitro, I nsulin, Cardizem)? @ -No Were any procedures done? @ -No Diagnosis/symptom? @ -Syncope, hypomagnesemia Acute, or Chronic, or Acute on Chronic? @ -Acute Uncomplicated (without systemic symptoms) or Complicated (systemic symptoms)? @ -Uncomplicated Side effects of treatment? @ -No Exacerbation, Progression, or Severe Exacerbation? @ -No Poses a threat to life or bodily function? How? (Chest pain, [place], [place], pneumonia, PE, COPD, DKA, ARF, appy, cholecystitis, CVA, Diverticulitis, Homicidal, Driver icidal, threat to staff... and all critical care pts) @ -Low likelihood - Lab Data Result diagrams: 12/23/23 21:47 12/23/23 21:47 Lab Results 12/23/23 12/23/23 12/23/23 Range/Units 21:47 21:47 21:47 WBC 8.3 (3.8-10.6) k/uL RBC 4.78 (3.80-5.40) m/uL Hgb 13.3 (11.4-16.0) gm/dL Hct 39.9 (34.0-46.0) % MCV 83.4 (80.0-100.0) fL MCH 27.8 (25.0-35.0) pg MCHC 33.3 (31.0-37.0) g/dL RDW 12.9 (11.5-15.5) % Plt Count 296 (150-450) k/uL MPV 8.1 Neutrophils % 76 % Lymphocytes % 17 % Monocytes % 4 % Eosinophils % 2 % Basophils % 0 % Neutrophils # 6.3 (1.3-7.7) k/uL Lymphocytes # 1.4 (1.0-4.8) k/uL Monocytes # 0.3 (0-1.0) k/uL Eosinophils # 0.2 (0-0.7) k/uL Basophils # 0.0 (0-0.2) k/uL PT 12.0 (10.0-12.5) sec INR 1.1 (<1.2) APTT 25.8 (22.0-30.0) sec D-Dimer (<0.60) mg/L FEU Sodium 138 (137-145) mmol/L Potassium 3.8 (3.5-5.1) mmol/L Chloride 106 (98-107) mmol/L Carbon Dioxide 23 (22-30) mmol/L Anion Gap 9 mmol/L BUN 11 (7-17) mg/dL Creatinine 0.49 L (0.52-1.04) mg/dL Est GFR (CKD-EPI)AfAm >90 (>60 ml/min/1.73 sqM) Est GFR (CKD-EPI)NonAf >90 (>60 ml/min/1.73 sqM) Glucose 128 H (74-99) mg/dL Calcium 9.2 (8.4-10.2) mg/dL Magnesium 1.4 L (1.6-2.3) mg/dL Total Bilirubin 0.6 (0.2-1.3) mg/dL AST 23 (14-36) U/L ALT 20 (4-34) U/L Alkaline Phosphatase 20 L (38-126) U/L Troponin I (0.000-0.034) ng/mL Total Protein 7.5 (6.3-8.2) g/dL Albumin 4.6 (3.5-5.0) g/dL 12/23/23 12/24/23 Range/Units 21:47 02:08 WBC (3.8-10.6) k/uL RBC (3.80-5.40) m/uL Hgb (11.4-16.0) gm/dL Hct (34.0-46.0) % MCV (80.0-100.0) fL MCH (25.0-35.0) pg MCHC (31.0-37.0) g/dL RDW (11.5-15.5) % Plt Count (150-450) k/uL MPV Neutrophils % % Lymphocytes % % Monocytes % % Eosinophils % % Basophils % % Neutrophils # (1.3-7.7) k/uL Lymphocytes # (1.0-4.8) k/uL Monocytes # (0-1.0) k/uL Eosinophils # (0-0.7) k/uL Basophils # (0-0.2) k/uL PT (10.0-12.5) sec INR (<1.2) APTT (22.0-30.0) sec D-Dimer 0.26 (<0.60) mg/L FEU Sodium (137-145) mmol/L Potassium (3.5-5.1) mmol/L Chloride (98-107) mmol/L Carbon Dioxide (22-30) mmol/L Anion Gap mmol/L BUN (7-17) mg/dL Creatinine (0.52-1.04) mg/dL Est GFR (CKD-EPI)AfAm (>60 ml/min/1.73 sqM) Est GFR (CKD-EPI)NonAf (>60 ml/min/1.73 sqM) Glucose (74-99) mg/dL Calcium (8.4-10.2) mg/dL Magnesium (1.6-2.3) mg/dL Total Bilirubin (0.2-1.3) mg/dL AST (14-36) U/L ALT (4-34) U/L Alkaline Phosphatase (38-126) U/L Troponin I <0.012 (0.000-0.034) ng/mL Total Protein (6.3-8.2) g/dL Albumin (3.5-5.0) g/dL Disposition Clinical Impression: Syncope, Hypomagnesemia Disposition: HOME SELF-CARE Condition: Fair Instructions (If sedation given, give patient instructions): Syncope (ED), Hypomagnesemia (ED) Additional Instructions: Follow-up with your PCP, call the office in the morning to schedule your appointment. Report back to ER with any new or worsening symptoms. Take [id number] magnesium supplements. Is patient prescribed a controlled substance at d/c from ED?: No Referrals: Hima Barber MD [Primary Care Provider] - 1-2 days Time of Disposition: 03:06
== END 2023-12-24 03:24 | disposition home or self-care (01) ==
LOC: EC 21:33
DX: E83.42 Hypomagnesemia (principal); R55 Syncope and collapse; Z88.8 Allergy status to other drugs, medicaments and biological substances; Z91.018 Allergy to other foods
CPT/HCPCS: 36415 ×2; 93005; 85379; 80053; 83735; 84484; 85025; 85610; 85730; 99284; 96374; 96361; J1885

== ENCOUNTER 2023-12-30 17:11 | Emergency (ER) | payer OTHER ==
--- NOTE | 2023-12-30 17:30 | ED ---
Headache HPI - General Source: patient, RN notes reviewed Mode of arrival: ambulatory Limitations: no limitations <Kassy Fonseca - Last Filed: 12/30/23 17:29> <Efraín Strickland - Last Filed: 12/30/23 21:04> - General Chief Complaint: Headache Stated Complaint: Bilateral leg numbness, headache Time Seen by Provider: 12/30/23 17:29 - History of Present Illness Initial Comments: Note: 33-year-old female presenting to the ER with chief complaint of headache. She states about 3 days ago she had a sudden onset headache. She states since then the pain has been worse and is also endorsing bilateral leg numbness and visual disturbances. Reports nausea denies vomiting. (Kassy Fonseca) 33-year-old female with chronic headache presenting with worse headache lasting 3 days. Patient states this was a relatively sudden onset and symptom. She has had associated nausea vomiting and photophobia. No fevers. No focal numbness or weakness but states she does have a tingling sensation in her bilateral legs, she states this is an ongoing symptom since 2014 and she does have pending eval uation with neurology. She has no weakness. Her main complaint is headache. (Efraín Strickland) - Related Data Home Medications Medication Instructions Recorded Confirmed Albuterol Sulfate [Ventolin HFA] 2 puff INHALATION RT-Q4H PRN 08/05/23 08/05/23 Fexofenadine HCl [[place]osua Allergy] 180 mg PO DAILY 08/05/23 08/05/23 Ibuprofen [Motrin] 800 mg PO TID PRN 08/05/23 08/05/23 Levothyroxine Sodium [Synthroid] 100 mcg PO DAILY 08/05/23 08/05/23 [place]-3/Dha/Epa/Fish Oil [Fish Oil 1 cap PO DAILY 08/05/23 08/05/23 1,000 mg Softgel] norgestimate-ethinyl estradioL 1 tab PO DAILY 08/05/23 08/05/23 [Sprintec 28 Day Tablet] Previous Rx's Medication Instructions Recorded Cholecalciferol (Vitamin D3) 125 mcg PO DAILY 30 Days #30 cap 08/10/23 [Vitamin D3 (125 MCG = 5,000 IU)] Docusate [Colace] 100 mg PO DAILY 30 Days #30 cap 08/10/23 Magnesium Oxide [Mag-Ox] 400 mg PO HS 30 Days #30 tab 08/10/23 Sertraline [Zoloft] 100 mg PO DAILY 30 Days #30 tab 08/10/23 lamoTRIgine [LaMICtal] 25 mg PO BID 30 Days #60 tab 08/10/23 traZODone HCL [Desyrel] 25 - 50 mg PO HS PRN 30 Days #30 08/10/23 tab Allergies Allergy/AdvReac Type Severity Reaction Status Date / Time onion AdvReac Nausea & Verified 12/23/23 21:46 Vomiting & Diarrhea Zgauepz-[id number]-[id number] Reductase AdvReac Rash/Hives Verified 12/23/23 21:46 Inhibitor Review of Systems ROS Other: All systems not noted in ROS Statement are negative. <Kassy Fonseca - Last Filed: 12/30/23 17:29> ROS Other: All systems not noted in ROS Statement are negative. <Efraín Strickland - Last Filed: 12/30/23 21:04> ROS Statement: Those systems with pertinent positive or pertinent negative responses have been documented in the HPI. Past Medical History Past Medical History: Thyroid Disorder Additional Past Medical History / Comment(s): Obstetric history: And has had 3 previous vaginal deliveries and 1 spontaneous . This is her fifth . She's had care with me since 9 weeks gestation. Blood type is O+, antibodies negative, rubella immune, RPR nonreactive, hepatitis B-, HIV nonreactive. She failed early 1 hour test and was put on a insulin for gestational diabetes. NSTs had been reactive and growth ultrasounds normal. GBS negative. History of Any Multi-Drug Resistant Organisms: None Reported Past Surgical History: Appendectomy Additional Past Surgical History / Comment(s): 11-24-14 lap appy Past Anesthesia/Blood Transfusion Reactions: No Reported Reaction Past Psychological History: Anxiety, Depression, PTSD Smoking Status: Never smoker Past Alcohol Use History: Occasional Past Drug Use History: None Reported - Past Family History Mother Family Medical History: Hypertension, Thyroid Disorder Sister(s) Family Medical History: Syncope Father Family Medical History: COPD Additional Family Medical History / Comment(s): takes B-12 injections, has a problem absorbing B-12 Brother(s) Additional Family Medical History / Comment(s): takes B-12 injections, has a problem absorbing B-12 <Kassy Fonseca - Last Filed: 12/30/23 17:29> General Exam Limitations: no limitations <Kassy Fonseca - Last Filed: 12/30/23 17:29> General appearance: alert, in no apparent distress Head exam: Present: atraumatic, normocephalic Eye exam: Present: normal appearance, PERRL, EOMI ENT exam: Present: normal exam Neck exam: Present: normal inspection. Absent: tenderness, meningismus Respiratory exam: Present: normal lung sounds bilaterally. Absent: respiratory distress, wheezes Cardiovascular Exam: Present: regular rate, normal rhythm GI/Abdominal exam: Present: soft. Absent: distended, tenderness, guarding Extremities exam: Present: normal inspection, normal capillary refill. Absent: calf tenderness Neurological exam: Present: alert, oriented X3, CN II-XII intact. Absent: motor sensory deficit Psychiatric exam: Present: normal affect, normal mood Skin exam: Present: warm, dry, intact. Absent: cyanosis, diaphoretic <Efraín Strickland - Last Filed: 12/30/23 21:04> - General Exam Comments Initial Comments: Visual Physical Exam Vital signs reviewed General: Nontoxic in no acute distress uncomfortable appearing Head: Normocephalic, atraumatic Eyes: PERRLA, EOMI ENT: Airway patent Chest: Nonlabored breathing Skin: No visual rash, normal skin tone Neuro: Alert and oriented 3 Musculoskeletal: No gross abnormalities (Kassy Fonseca) Course Vital Signs 12/30/23 12/30/23 17:17 18:30 Temperature 97.9 F 98.2 F Pulse Rate 87 81 Respiratory 16 17 Rate Blood Pressure 124/63 117/80 O2 Sat by Pulse 99 100 Oximetry Medical Decision Making <Kassy Fonseca - Last Filed: 12/30/23 17:29> - Lab Data Result diagrams: 12/30/23 18:26 12/30/23 18:26 <Efraín Strickland - Last Filed: 12/30/23 21:04> - Medical Decision Making I performed the quick note portion of this chart. Electronically signed by Kassy Fonseca PA-C (Kassy Fonseca) Was pt. sent in by a medical professional or institution (RITU Babcock, BUILDING CONSTRUCTION IRONWORKER, urgent care, hospital, or skilled nursing...) When possible be specific @ -[No] Did you speak to anyone other than the patient for history (EMS, parent, family, police, friend...)? What history was obtained from this source @ -[No] Did you review nursing and triage notes (agree or disagree)? Why? @ -[I reviewed and agree with nursing and triage notes] Were old charts reviewed (outside hosp., previous admission, EMS record, old EKG, old radiological studies, urgent care reports/EKG's, skilled nursing records)? Report findings @ -[No old charts were reviewed] Differential headache EKG interpreted by me (3pts min.). @ -[As above] X-rays interpreted by me (1pt min.). @ -[None done] CT interpreted by me (1pt min.). @CT brain without contrast and CT angiography brain have been ordered, results pending U/S interpreted by me (1pt. min.). @ -[None done] What testing was considered but not performed or refused? (CT, X-rays, U/S, labs)? Why? @ -[None] What meds were considered but not given or refused? Why? @ -[None] Did you discuss the management of the patient with other professionals (professionals i.e. RITU Babcock, BUILDING CONSTRUCTION IRONWORKER, lab, RT, psych nurse, social work msw, history professor, t eacher, navy airspace officer, case filler)? Give summary @ -[No] Was smoking cessation discussed for >3mins.? @ -[No] Was critical care preformed (if so, how long)? @ -[No] Were there social determinants of health that impacted care today? How? (Homelessness, low income, unemployed, alcoholism, drug addiction, transportation, low edu. Level, literacy, decrease access to med. care, [place] [facility], rehab)? @ -[No] Was there de-escalation of care discussed even if they declined (Discuss DNR or withdrawal of care, Hospice)? DNR status @ -[No] What co-morbidities impacted this encounter? (DM, HTN, Smoking, COPD, CAD, Cancer, CVA, ARF, Chemo, Hep., AIDS, mental health diagnosis, sleep apnea, morbid obesity)? @ -Migraine history Was patient admitted / discharged? Hospital course, mention meds given and [place], prescriptions, significant lab abnormalities, going to OR and other pertinent info. @33-year-old female with 3-day history of severe headache. Patient well- appearing. Vital signs are stable. She has normal strength throughout. No ataxia. No pupillary changes. Laboratory test including CBC, CMP, urinalysis, urine test is unremarkable. CT and CT angiography have been ordered given the severe headache with somewhat rapid onset. CT CT angiography unremarkable. Patient reevaluated, feeling significantly better. Stable for discharge with outpatient follow-up. (Efraín Strickland) - Lab Data Lab Results 12/30/23 12/30/23 12/30/23 Range/Units 18:26 18:26 18:40 WBC 6.6 (3.8-10.6) k/uL RBC 4.36 (3.80-5.40) m/uL Hgb 12.2 (11.4-16.0) gm/dL Hct 36.4 (34.0-46.0) % MCV 83.5 (80.0-100.0) fL MCH 28.0 (25.0-35.0) pg MCHC 33.6 (31.0-37.0) g/dL RDW 12.6 (11.5-15.5) % Plt Count 351 (150-450) k/uL MPV 7.6 Sodium 140 (137-145) mmol/L Potassium 3.7 (3.5-5.1) mmol/L Chloride 106 (98-107) mmol/L Carbon Dioxide 27 (22-30) mmol/L Anion Gap 7 mmol/L BUN 5 L (7-17) mg/dL Creatinine 0.46 L (0.52-1.04) mg/dL Est GFR (CKD-EPI)AfAm >90 (>60 ml/min/1.73 sqM) Est GFR (CKD-EPI)NonAf >90 (>60 ml/min/1.73 sqM) Glucose 97 (74-99) mg/dL Calcium 9.5 (8.4-10.2) mg/dL Total Bilirubin 0.5 (0.2-1.3) mg/dL AST 21 (14-36) U/L ALT 18 (4-34) U/L Alkaline Phosphatase 26 L (38-126) U/L Total Protein 7.4 (6.3-8.2) g/dL Albumin 4.4 (3.5-5.0) g/dL Urine Color Light Yellow Urine Appearance Cloudy H (Clear) Urine pH 6.0 (5.0-8.0) Ur Specific [place] 1.015 (1.001-1.035) Urine Protein Negative (Negative) Urine Glucose (UA) Negative (Negative) Urine Ketones Negative (Negative) Urine Blood Negative (Negative) Urine Nitrite Negative (Negative) Urine Bilirubin Negative (Negative) Urine Urobilinogen <2.0 (<2.0) mg/dL Ur Leukocyte Esterase Moderate H (Negative) Urine RBC 1 (0-5) /hpf Urine WBC 10 H (0-5) /hpf Ur Squamous Epith Cells 3 (0-4) /hpf Urine Bacteria Occasional H (None) /hpf Urine Mucus Few H (None) /hpf Urine HCG, Qual (Not Detectd) 12/30/23 Range/Units 18:40 WBC (3.8-10.6) k/uL RBC (3.80-5.40) m/uL Hgb (11.4-16.0) gm/dL Hct (34.0-46.0) % MCV (80.0-100.0) fL MCH (25.0-35.0) pg MCHC (31.0-37.0) g/dL RDW (11.5-15.5) % Plt Count (150-450) k/uL MPV Sodium (137-145) mmol/L Potassium (3.5-5.1) mmol/L Chloride (98-107) mmol/L Carbon Dioxide (22-30) mmol/L Anion Gap mmol/L BUN (7-17) mg/dL Creatinine (0.52-1.04) mg/dL Est GFR (CKD-EPI)AfAm (>60 ml/min/1.73 sqM) Est GFR (CKD-EPI)NonAf (>60 ml/min/1.73 sqM) Glucose (74-99) mg/dL Calcium (8.4-10.2) mg/dL Total Bilirubin (0.2-1.3) mg/dL AST (14-36) U/L ALT (4-34) U/L Alkaline Phosphatase (38-126) U/L Total Protein (6.3-8.2) g/dL Albumin (3.5-5.0) g/dL Urine Color Urine Appearance (Clear) Urine pH (5.0-8.0) Ur Specific [place] (1.001-1.035) Urine Protein (Negative) Urine Glucose (UA) (Negative) Urine Ketones (Negative) Urine Blood (Negative) Urine Nitrite (Negative) Urine Bilirubin (Negative) Urine Urobilinogen (<2.0) mg/dL Ur Leukocyte Esterase (Negative) Urine RBC (0-5) /hpf Urine WBC (0-5) /hpf Ur Squamous Epith Cells (0-4) /hpf Urine Bacteria (None) /hpf Urine Mucus (None) /hpf Urine HCG, Qual Not Detected (Not Detectd) Disposition <Kassy Fonseca - Last Filed: 12/30/23 17:29> Is patient prescribed a controlled substance at d/c from ED?: No Time of Disposition: 20:59 <Efraín Strickland - Last Filed: 12/30/23 21:04> Clinical Impression: Headache Disposition: HOME SELF-CARE Condition: Fair Instructions (If sedation given, give patient instructions): Acute Headache (ED) Referrals: Hima Barber MD [Primary Care Provider] - 1-2 days
[2023-12-30 18:32] LABS: HCT 36.4 % (34.0-46.0); HGB 12.2 gm/dL (11.4-16.0); MCHC 33.6 g/dL (31.0-37.0); MCV 83.5 fL (80.0-100.0); Mean Platelet Volume 7.6; Platelet Count 351 k/uL (150-450); RBC 4.36 m/uL (3.80-5.40); RDW 12.6 % (11.5-15.5); WBC 6.6 k/uL (3.8-10.6)
[2023-12-30] MEDS: KETOROLAC 15 MG/ML 1 ML VIAL IVP STA (18:40)
[2023-12-30] MEDS: diphenhydrAMINE 50 MG/ML 1 ML VIAL IVP STA (18:42)
[2023-12-30] MEDS: SODIUM CHLORIDE 0.9% 1,000 ML IV STA (18:42)
[2023-12-30] MEDS: METOCLOPRAMIDE 5 MG/ML 2 ML VIAL IVP STA (18:43)
[2023-12-30] MEDS: ACETAMINOPHEN IV (For NPO) 1,000 MG in EMPTY BAG 1 BAG IVPB ONE (18:43)
[2023-12-30 18:46] LABS: ALT 18 U/L (4-34); AST 21 U/L (14-36); African American GFR (CKD) >90 (>60 ml/min/1.73 sqM); Albumin 4.4 g/dL (3.5-5.0); Alkaline Phosphatase 26 U/L (38-126); Anion Gap 7 mmol/L; Blood Urea Nitrogen 5 mg/dL (7-17); Calcium 9.5 mg/dL (8.4-10.2); Carbon Dioxide 27 mmol/L (22-30); Chloride 106 mmol/L (98-107); Glucose 97 mg/dL (74-99); Non-African American GFR(CKD) >90 (>60 ml/min/1.73 sqM); Potassium 3.7 mmol/L (3.5-5.1); Sodium 140 mmol/L (137-145); Total Bilirubin 0.5 mg/dL (0.2-1.3); Total Protein 7.4 g/dL (6.3-8.2)
[2023-12-30 18:55] LABS: Appearance,Urine Cloudy (Clear); Bacteria,Urine Occasional /hpf; Bilirubin,Urine Negative (Negative); Blood,Urine Negative (Negative); Color,Urine Light Yellow; Glucose,Urine (UA) Negative (Negative); Ketones,Urine Negative (Negative); Leukocyte Esterase,Urine Moderate (Negative); Mucus,Urine Few /hpf; Nitrite,Urine Negative (Negative); Protein,Urine Negative (Negative); RBC,Urine 1 /hpf (0-5); Specific Gravity,Urine 1.015 (1.001-1.035); Squamous Epithelial Cell,Urine 3 /hpf (0-4); Urobilinogen,Urine <2.0 mg/dL (<2.0); WBC,Urine 10 /hpf (0-5)
--- NOTE | 2023-12-30 20:29 | CT ---
EXAMINATION TYPE: CT brain wo con CT DLP: 1780.9 mGycm, Automated exposure control for dose reduction was used. DATE OF EXAM: 12/30/2023 7:32 PM COMPARISON: None.. CLINICAL INDICATION:Female, 33 years old with history of severe GARCIA, Severe headache x days. TECHNIQUE: Brain: Axial CT images of the brain were obtained with coronal and sagittal reformats created and rev iewed. Contrast used: None. Oral contrast used: None. FINDINGS: Extra-axial spaces: No abnormal extra-axial fluid collections. Basilar cisterns are patent. Ventricular system: Within normal limits. Cerebral parenchyma: No increased attenuation to suggest acute intraparenchymal hemorrhage. The gra y-white matter interface appears maintained. No significant atrophy. White matter unremarkable by C T. Cerebellum: No acute abnormality. Mass effect: No evidence of mass effect or midline shift. Intracranial vasculature: Unremarkable Soft tissues: No acute or concerning abnormality. Visualized orbits: Orbital contents appear grossly intact. Calvarium/osseous structures: No evidence of calvarial fracture. Paranasal sinuses and mastoid air cells: Clear. MRI is more sensitive for detecting acute processes such as infarct, and may be considered if clinica lly warranted. IMPRESSION: No acute intracranial CT abnormality.
--- NOTE | 2023-12-30 20:55 | CT ---
EXAMINATION TYPE: CT angio [facility] [place] CT DLP: 1780.9 mGycm, Automated exposure control for dose reduction was used. DATE OF EXAM: 12/30/2023 7:33 PM COMPARISON: Same day CT head. CLINICAL INDICATION:Female, 33 years old with history of severe GARCIA; PHH, Severe headache TECHNIQUE: CTA of the head was obtained after IV administration 65 cc [id number]. Multiplanar reforma ts generated. Also 3D reconstructions were post-processed at an independent workstation. NASCET crite mel used. FINDINGS: Patent enhancing left intracranial vertebral artery is seen. Faint visualization of the distal right vertebral artery, not well seen more proximally may be very small in size. Basilar artery appears rel atively small in caliber but patent throughout. This essentially terminates as the left [place], which ap pears normally patent. No sizable left posterior communicating artery is seen. On the right, there is a origin of the [place] arising from the ICA. Right [place] appears patent. Bilateral intracranial ICAs appear patent. Carotid termini are patent. MCAs appear normally patent. L eft CESAR appears normal. There is a relatively smaller but patent right CESAR A1 segment, which seems li mallika to join the contralateral side in the normal expected area of the anterior communicating artery, with apparently thereafter a single common artery extending anteriorly before later bifurcating into right and left ACAs. There is no evidence of significant stenosis, major vascular occlusion, AVM, or sizable aneurysm dete cted in the limits of CTA. The visualized brain parenchyma is unremarkable. The dural venous sinuses show grossly normal enhance ment without suggestion of thrombosis. Included osseous structures show no acute abnormalities. IMPRESSION: 1. Patent CTA head. 2. No evidence of significant stenosis, major vascular occlusion, AVM, or sizable intracranial aneur ysm detected in the limits of CTA.
[2023-12-30 21:27] VITALS: BP 127/87; PULSE 80; RESP 18; TEMP 98
== END 2023-12-30 21:25 | disposition home or self-care (01) ==
LOC: EC 17:11
DX: R51.9 Headache, unspecified (principal); Z86.69 Personal history of other diseases of the nervous system and sense organs; Z88.8 Allergy status to other drugs, medicaments and biological substances; Z91.018 Allergy to other foods
CPT/HCPCS: 99284; 96374; 96375 ×3; 96361; 36415; 80053; 85027; 81001; 81025; 70496; 70450; J1200; J2765; J0131; J1885; Q9967